=== PATIENT | female | born 1940 | race Caucasian/White ===

== ENCOUNTER 2018-11-10 17:01 | Observation (INO) | payer MEDICARE ==
--- NOTE | 2018-11-10 19:20 | ED ---
Neurological HPI - HPI Summary HPI Summary: This patient is a 77 year old F presenting to ED with a chief complaint of RUE and RLE weakness since three days ago. 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 She states that when she brushes her teeth or skelton her hair, the toothbrush/comb weighs a ton. The weakness has been intermittent but was constant today. Patient reports tingling in the right leg, but states she has had it for a while 2/2 to spinal stenosis. Patient denies fever. Patient takes baby Aspirin. PSHx of three open heart surgeries for her aortic valve. The last surgery was three years ago. - History of Current Complaint Chief Complaint: EDNeurologicalDeficit Stated Complaint: WEAKNESS RIGHT ARM/LEG PER PT Time Seen by Provider: 11/10/18 18:57 Hx Obtained From: Patient Onset/Duration: Started days ago - 3 days, Worse Since - Became constant Timing: Constant Onset Severity: Mild Current Severity: Mild Pain Intensity: 0 Character: Weak, Numbness/Tingling Aggravating: Nothing Alleviating: Nothing Associated Signs and Symptoms: Positive: Weakness - RUE/RLE. Negative: Fever - Allergy/Home Medications Allergies/Adverse Reactions: Allergies Allergy/AdvReac Type Severity Reaction Status Date / Time No Known Allergies Allergy Verified 04/19/14 12:58 Home Medications: Home Medications Aspirin EC TAB* [Ecotrin EC Low Dose 81 MG*] 81 mg PO DAILY 11/10/18 [History Confirmed 11/10/18] Diltiazem CD CAP* [Cardizem CD CAP*] 120 mg PO DAILY 11/10/18 [History Confirmed 11/10/18] Ezetimibe TAB* [Zetia TAB*] 10 mg PO BEDTIME 11/10/18 [History Confirmed ] Lisinopril TAB* [Prinivil TAB*] 2.5 mg PO DAILY 11/10/18 [History Confirmed 05/26] Metoprolol Succinate XL TAB* [Toprol XL TAB*] 50 mg PO DAILY 11/10/18 [History Confirmed 11/10/18] Oxybutynin TAB* [Ditropan TAB*] 5 mg PO BID 11/10/18 [History Confirmed 11/10/18 ] Ranitidine TAB (NF) [Zantac TAB (NF)] 300 mg PO DAILY 11/10/18 [History Confirmed 11/10/18] Rosuvastatin (NF) [Crestor (NF)] 10 mg PO MOWEFR 11/10/18 [History Confirmed 05/26] celeCOXIB CAP* [CeleBREX CAP*] 200 mg PO BID WITH MEALS 11/10/18 [History Confirmed 11/10/18] PMH/Surg Hx/FS Hx/Imm Hx Endocrine/Hematology History: Denies: Hx Diabetes, Hx Thyroid Disease Cardiovascular History: Reports: Hx Hypercholesterolemia, Hx Hypertension, Hx Pacemaker/ICD - 05/20/14, Hx Valvular Heart Disease - 2009 & 05/17/2013 Denies: Hx Congestive Heart Failure History: Denies: Hx Renal Disease Musculoskeletal History: Reports: Hx Arthritis - "Doesn't slow me down!" Sensory History: Reports: Hx Contacts or Glasses Opthamlomology History: Reports: Hx Contacts or Glasses - Cancer History Cancer Type, Location and Year: Br Ca 1998 Hx Chemotherapy: No Hx Radiation Therapy: Yes - Surgical History Surgery Procedure, Year, and Place: PACER PLACED 05/20/14. AORTIC VALVE REPLACED 05/17/14. HEART CATH. Double mastectomy 1998 Hx Anesthesia Reactions: No Infectious Disease History: No Infectious Disease History: Denies: Traveled Outside the [place] in Last 30 Days - Family History Known Family History: Positive: Hypertension, Other - Colon/pancreatic/prostate cancer, Lupus - Social History Alcohol Use: Occasionally Hx Substance Use: No Substance Use Type: Reports: None Hx Tobacco Use: Yes Smoking Status (MU): Former Smoker Type: Cigarettes Have You Smoked in the Last Year: No Review of Systems Negative: Fever Positive: Weakness - RUE/RLE weakness/tingling All Other Systems Reviewed And Are Negative: Yes Physical Exam - Summary Physical Exam Summary: Constitutional: Well-developed, Well-nourished, Alert. (-) Distressed Skin: Warm, Dry HENT: Normocephalic; Atraumatic Eyes: Conjunctiva normal Neck: Musculoskeletal ROM normal neck. (-) JVD, (-) Nuchal rigidity Cardio: Rhythm regular, rate normal, Heart sounds normal; Intact distal pulses; Radial pulses are 2+ and symmetric. (+) Murmur Pulmonary/Chest wall: Effort normal. (-) Respiratory distress, (-) Wheezes, (-) Rales Abd: Soft. (-) Tenderness, (-) Distension, (-) Guarding, (-) Rebound Musculoskeletal: (-) Edema, s/p bilateral mastectomy Lymph: (-) Cervical adenopathy Neuro: Alert, PERRL, Oriented x3, Strength 4/5 in right hand. Strength otherwise normal. Cranial nerves II-XII are grossly intact. SILT, (-) Dysmetria , (-) Nystagmus, ambulates w steady gait. Psych: Mood and affect Normal GCS: 15 Triage Information Reviewed: Yes Vital Signs On Initial Exam: Initial Vitals Temp Pulse Resp BP Pulse Ox 97.6 F 60 18 166/80 96 11/10/18 17:13 11/10/18 17:13 11/10/18 17:13 11/10/18 17:13 11/10/18 17:13 Vital Signs Reviewed: Yes Diagnostics - Vital Signs Vital Signs Temp Pulse Resp BP Pulse Ox 11/10/18 18:49 98.0 F 60 18 138/75 98 11/10/18 17:13 97.6 F 60 18 166/80 96 - Laboratory Result Diagrams: 11/10/18 19:28 11/10/18 19:28 Lab Statement: Any lab studies that have been ordered have been reviewed, and results considered in the medical decision making process. - CT Brain CT Interpretation Completed By: Radiologist Summary of CT Findings: 1. No acute intracranial abnormality. 2. Age-related atrophy and mild chronic small vessel ischemic disease. Dr. Jackson has reviewed this radiology report. - EKG 1916 Cardiac Rate: NL - 60 BPM EKG Comparison: Other - New RBBB Summary of EKG Findings: An EKG at 1916 revealed an atrial-paced rhythm at 60BPM with a RBBB, T-wave inversion in V1 through V4. When compared with an EKG in 2014, the RBBB is new. NIH Scale - NIH Scale Level of Consciousness: Alert/Keenly Responsive Ask Patient the Month and His/Her Age: Both Correct Ask Pt to Open/Close Eyes and Sampling Theory Teacher/Release Non-Paretic Hand: Both Correctly Best Gaze (Only Horizontal Eye Movement): Normal Visual Field Testing: No Visual Loss Facial Paresis-Pt to Smile & Close Eyes or Grimace Symmetry: Normal/Symmetrical Motor Function - Right Arm: No Drift-Holds 10 Seconds Motor Function - Left Arm: No Drift-Holds 10 Seconds Motor Function - Right Leg: No Drift-Holds 10 Seconds Motor Function - Left Leg: No Drift-Holds 10 Seconds Limb Ataxia-Must be out of Proportion to Weakness Present: Absent Sensory (Use Pinprick to Test Arms/Legs/Trunk/Face): Normal Best Language (Describe Picture, Name Items): No Aphasia Dysarthria (Read Several Words): Normal Extinction and Inattention: No Abnormality Total Score: 0 Re-Evaluation - Re-Evaluation First Eval Re-Evaluation Time: 19:53 Comment: Discussed results with patient. Patient agrees to be admitted. Patient will be admitted to [facility] with dx of TIA and weakness. Patient understands and agrees with this plan. Course/Dx - Course Course Of Treatment: 77-year-old female with a history of aortic valve replacement presents with right arm and right leg weakness for 3 days. - NH stroke scale of 0. Physical exam notable for for weakness of the right hand otherwise unremarkable. - Check CT brain labs and EKG plan for TIA workup with MRI. - Diagnoses Provider Diagnoses: TIA (transient ischemic attack), Weakness - Physician Notifications Discussed Care Of Patient With: Shawna Ordonez Time Discussed With Above Provider: 19:50 Instructed by Provider To: Other - Discussed patient case with Dr. Ordonez, neurologist, who stated he will see the patient in the morning. At 2014, discussed patient case with Dr. Josefina Gore, hospitalist, who accepted the patient for admission to [facility]. Discharge ED - Sign-Out/Discharge Documenting (check all that apply): Patient Departure - Admit Patient Received Moderate/Deep Sedation with Procedure: No - Discharge Plan Condition: Stable Disposition: ADMITTED TO [facility] Referrals: Miguelina Leigh [Primary Care Provider] - - Billing Disposition and Condition Condition: STABLE Disposition: Admitted to [facility] - Attestation Statements Document Initiated by Scribe: Yes Documenting Scribe: Denver Lujan Provider For Whom Phil is Documenting (Include Credential): Fercho Jackson MD Scribe Attestation: Denver Sosa, scribed for Fercho Jackson MD on 11/10/18 at 2041. Scribe Documentation Reviewed: Yes Provider Attestation: The documentation as recorded by the Denver foley accurately reflects the service I personally performed and the decisions made by me, Fercho Jackson MD Status of Scribe Document: Viewed
[2018-11-10 19:35] LABS: ABS Eosinophils 0.1 10^3/ul (0-0.6); ABS Monocytes 0.4 10^3/ul (0-0.8); ABS Neutrophils 3.3 10^3/ul (1.5-7.7); Eosinophil % 1.2 %; Hematocrit 40 % (35-47); Hemoglobin 13.9 g/dL (12.0-16.0); Lymphocyte % 21.4 %; Mean Corpuscular HGB Conc 35 g/dL (31-36); Mean Corpuscular Hemoglobin 33 pg (27-31); Mean Corpuscular Volume 93 fL (80-97); Mean Platelet Volume 7.3 fL (7.4-10.4); Nucleated Red Blood Cells % 0.1; Platelet Count 175 10^3/uL (150-450); Red Blood Count 4.27 10^6 /uL (3.70-4.87); Red Cell Distribution Width 13 % (10-15); White Blood Count 4.8 10^3/uL (3.5-10.8)
[2018-11-10 20:00] LABS: Albumin 4.2 g/dL (3.2-5.2); Albumin/Globulin Ratio 1.5 (1-3); BUN/Creatinine Ratio 22.4 (8-20); Calcium 9.3 mg/dL (8.6-10.3); EGFR African American 103.8 (>60); EGFR Non-African American 85.8 (>60); Globulin 2.8 g/dL (2-4); Total Bilirubin 0.4 mg/dL (0.2-1.0)
[2018-11-10] MEDS ORDERED: Enoxaparin(*) 30 MG/0.3 ML SYR SUBCUT SCH (21:00)
--- NOTE | 2018-11-10 21:14 | ADMNOTE ---
Subjective Date of Service: 11/10/18 Interval History: 77 year old female with hx of HTN, HLD, Atrial flutter came to the emergency room with complaints of transient right upper extremity and right lower extremity weaknesses for the past couple of days. Symptoms would resolve gradually in a matter of minutes to hours from time of onset. She came to the emergency room today after noticing that her right arm was very heavy once she tried to use it and her right leg would buckle. Her symptoms already resolved. Pt lives alone with family nearby. She takes baby aspirin at home. Has hx of multiple valvular repairs. She used to be on warfarin for A flutter but that was discontinued 3 years ago for unknown reasons. Review of Systems - Measurements Intake and Output: Intake and Output Last 24 Hours 11/08/18 11/09/18 11/10/18 11/11/18 06:59 06:59 06:59 06:59 Weight 127 lb - Review of Systems Constitutional Symptoms: Negative: Weight Gain, Weight Loss, Weakness, Fatigue, Fever, Night Sweats, Unexplained Falls, Other Dermatology: Negative: Normal, Rash, Skin Lesions, Cancer, Skin Lumps, Other HEENT: Negative: Normal, Change in Hearing, Vertigo, Dental Problems, Tinnitus, Sinus Problem, Other Eyes: Negative: Normal, Change in Vision, Double Vision, Eye Pain, Glaucoma, Cataract, Contacts or Glasses, Other Thyroid: Negative: Normal, Goiter, Thyroid Nodule, Cold Intolerance, Heat Intolerance , Sweatiness, Tremor, Frequent Defecation, Constipation, Palpitations, Primary Hypothyroidism, Primary Hyperthyroidism, Weight Loss, Weight Gain, Change in Skin/Hair, Change in Menstruation, Radiation Exposure, Other Pulmonary: Negative: Normal, Cough, Sputum, Hemoptysis, Wheezing, Respiratory Distress, Shortness of Breath, COPD, Asthma, Exercise Intolerance, Home Oxygen, Other Cardiology: Positive: Palpitations Gastroenterology: Negative: Normal, Abdominal Pain, Nausea, Vomiting, Anorexia, Indigestion, Difficulty Swallowing, Heartburn, Constipation, Diarrhea, Blood in Stools, Change in Bowel Habits, Haematemesis, Melena, Other Musculoskeletal: Positive: Other - transient RUE and LLE weaknesses Neurology: Positive: Unexplained Weakness, Other - transient weakness Negative: Normal, Headache, Migraines, Change in Vision, Diplopia, Dizziness , Change in Balancing, Change in Coordination, Change in Memory, Change in Speech, Change in Sphincter Function, Change in Walking, Numbness\Paresthesiae, Hx of Stroke\TIA, Hx of Seizures Objective Active Medications: Enoxaparin Sodium (Lovenox(*)) 30 mg SUBCUT Q24H [facility] Vital Signs - 8 hr 11/10/18 11/10/18 11/10/18 17:13 18:49 19:24 Temperature 97.6 F 98.0 F Pulse Rate 60 60 60 Respiratory 18 18 18 Rate Blood Pressure 166/80 138/75 141/83 (mmHg) O2 Sat by Pulse 96 98 95 Oximetry 11/10/18 11/10/18 11/10/18 19:54 20:00 20:24 Temperature Pulse Rate 60 60 60 Respiratory 17 28 18 Rate Blood Pressure 162/80 159/82 (mmHg) O2 Sat by Pulse 96 97 96 Oximetry Oxygen Devices in Use Now: None Eyes: No Scleral Icterus, PERRLA Ears/Nose/Mouth/Throat: NL Teeth, Lips, Gums Neck: NL Appearance and Movements; NL JVP Respiratory: Symmetrical Chest Expansion and Respiratory Effort, Clear to Auscultation Cardiovascular: NL Sounds; No Murmurs; No JVD Abdominal: NL Sounds; No Tenderness; No Distention Lymphatic: No Cervical Adenopathy Extremities: No Edema, No Clubbing, Cyanosis Skin: No Rash or Ulcers Neurological: Alert and Oriented x 3, NL Sensation, NL Gait, NL Muscle Strength and Tone Result Diagrams: 11/10/18 19:28 11/10/18 19:28 Assess/Plan/Problems-Billing Assessment: - Patient Problems (1) TIA (transient ischemic attack) Current Visit: Yes Status: Acute Code(s): G45.9 - TRANSIENT CEREBRAL ISCHEMIC ATTACK, UNSPECIFIED SNOMED Code(s): 477146619 Comment: Transient RUE and RLE weakness has hx of valvular A flutter, was on warfarin at some point. TIA workup which includes, MRI, duplex US, Tele monitoring, ECHO Lipid panel, A1C may need to be restarted on warfarin (2) DVT prophylaxis Current Visit: No Status: Acute Priority: Medium Onset Date: 06/02/14 Code(s): [id number] - SNOMED Code(s): 378174712 (3) Full code status Current Visit: No Status: Acute Priority: Medium Onset Date: 06/02/14 Code(s): Z78.9 - OTHER SPECIFIED HEALTH STATUS SNOMED Code(s): 323848065 (4) Cardiac pacemaker Current Visit: No Status: Chronic Priority: Medium Code(s): Z95.0 - PRESENCE OF CARDIAC PACEMAKER SNOMED Code(s): 329860580 (5) Dyslipidemia Current Visit: No Status: Chronic Priority: Medium Code(s): E78.5 - HYPERLIPIDEMIA, UNSPECIFIED SNOMED Code(s): 139066554 Comment: lipid panel pending cont crestor and ezetimibe (6) H/O aortic valve replacement Current Visit: No Status: Chronic Priority: Medium Code(s): Z95.2 - PRESENCE OF PROSTHETIC HEART VALVE SNOMED Code(s): 3150569032492 Comment: bioprosthetic (7) History of hypertension Current Visit: No Status: Chronic Priority: Medium Code(s): Z86.79 - PERSONAL HISTORY OF OTHER DISEASES OF THE CIRCULATORY SYSTEM SNOMED Code(s): 138189070 Comment: toprol XL, lisinopril, cardizem
[2018-11-11 05:51] LABS: INR 1.07 (0.82-1.09)
[2018-11-11 06:00] LABS: HDL Cholesterol 48.6 mg/dL
[2018-11-11 06:21] LABS: TSH (Thyroid Stimulating Horm) 1.2 mcIU/mL (0.34-5.60)
[2018-11-11] MEDS ORDERED: Aspirin EC TAB* 81 MG TAB.EC PO SCH (09:00)
[2018-11-11] MEDS ORDERED: Famotidine TAB* 20 MG PO SCH (09:00)
[2018-11-11] MEDS ORDERED: Lisinopril TAB* 5 MG PO SCH (09:00)
[2018-11-11] MEDS ORDERED: Diltiazem CD CAP* 120 MG PO SCH (09:00)
[2018-11-11] MEDS ORDERED: Metoprolol Succinate XL TAB* 50 MG PO SCH (09:00)
[2018-11-11] MEDS: Atorvastatin* 20 MG TAB PO SCH ×2 (09:21→13:55)
[2018-11-11] MEDS ORDERED: Clopidogrel TAB* 75 MG PO SCH (10:00)
[2018-11-11] MEDS ORDERED: Iohexol 350* (CONTRAST) 500 ML MDV IV ONE (10:04)
--- NOTE | 2018-11-11 14:45 | CONS ---
NEUROLOGY CONSULTATION NOTE: DATE OF CONSULT: 11/11/18 CONSULTING PROVIDER: ANA Purcell REASON FOR CONSULT: Transient right arm weakness. CHIEF COMPLAINT: "Right-sided heaviness." HISTORY OF PRESENT ILLNESS: Mrs. Alicia Barajas is a 77-year-old female with history of hypertension, dyslipidemia, who had 3 open heart surgeries for aortic valve replacement. She has needed to replace the aortic valve a few years later due to a missize. She also had a third heart surgery, which was for pacemaker placement in 2014. The pacemaker was placed for what was reported to the examiner for complete heart block. 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 She had atrial flutter as a complication of one of her heart surgeries and never had any episodes of arrhythmias according to the patient. She was on Coumadin for a short period of time and was switched to aspirin therapy. The patient was in normal state of health on 11/06/18. She woke up Friday morning, 11/07/18 with weakness on the right side. She woke up approximately at 7 a.m. She felt her right arm was heavy. She felt her arm had weighed a ton. She had some gait disturbance and stumbling due to some heavy sensation in the right leg. She never had any dysarthria. She denied any headaches or visual disturbance. She did not have any swallowing difficulty. She did not have any word finding difficulty. She has never had similar symptoms in the past. The symptoms significantly improved over the last 24 hours, but she still feels that her right hand and arm is slightly heavy. She does complain of neck stiffness, but no radiating neck pain. She has not had any falls. She denied any impairment in her bowel or bladder function. PAST MEDICAL HISTORY: Hypertension, dyslipidemia, atrial flutter, she is on aspirin therapy. Complete heart block, status post pacemaker. She follows up with Dr. Ramos. MEDICATIONS: 1. Ranitidine 300 mg p.o. daily. 2. Ezetimibe 10 mg p.o. at bedtime. 3. Rosuvastatin 10 mg p.o. daily. 4. Oxybutynin 5 mg p.o. b.i.d. 5. Metoprolol 50 mg p.o. daily. 6. Lisinopril 2.5 mg p.o. daily. 7. Aspirin 81 mg p.o. daily. 8. Celecoxib 200 mg p.o. b.i.d. 9. Diltiazem 120 mg p.o. daily. ALLERGIES: No known drug allergies. FAMILY HISTORY: Her father had epilepsy. SOCIAL HISTORY: She lives alone. She denied tobacco use. 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 She drinks alcohol occasionally, but denied any excessive alcohol use. REVIEW OF SYSTEMS: A 14-point review of systems was obtained and otherwise negative, except for what was mentioned in the HPI. PHYSICAL EXAM: Vitals: Temperature of 98, pulse of 60, respiratory rate of 20 , oxygen saturation of 97%, blood pressure of 126/72. General: Well-nourished , well- developed female, who looks younger than stated age. Head: Atraumatic , normocephalic. Eyes: Conjunctivae/corneas are clear. Neck is supple and symmetrical with no carotid bruit. Negative Spurling sign bilaterally. Cardiovascular: Regular rate and rhythm with normal S1, S2. Pulmonary: Clear to auscultation bilaterally. Extremities: Normal range of motion with no hammertoes or high arches. Skin: No skin lesions or laceration. Psych: Affect is broad and normal mood, easy to establish rapport. Neurological Examination: Mental Status: Awake, alert, and oriented to person, place, time, and general circumstances. Speech and language including expression, repetition , and comprehension were all assessed and found to be normal. Cranial Nerves: Pupils are equal, round, and reactive to light. Extraocular muscles are intact. No facial asymmetry. Sensation is intact in the right face bilaterally. Tongue is symmetric and midline with no atrophy or fasciculation. Motor Examination: 5/5 strength in the upper and lower extremities bilaterally. There is slight reduced activation graded as 4+/5 in elbow extension, wrist extension on the right. No sensory abnormality. Reflexes: 2+ in the biceps, triceps, brachioradialis, knees, and trace at the ankles bilaterally. Flexor plantar response bilaterally. Coordination: Normal finger -to-nose and [id number] testing bilaterally. Gait: Normal stance. No ataxia. DIAGNOSTIC STUDIES/LAB DATA: Labs, imaging, and other diagnostic testing. WBC of 4.8, hemoglobin of 13.9, hematocrit of 40, platelets of 175. INR is 1.07. Sodium of 137, potassium of 4.0, chloride of 105, carbon dioxide of 28, anion gap of 4, BUN of 15, creatinine 0.67, glucose of 107, hemoglobin A1c of 5.6. LDL of 53, TSH of 1.2. I have added on a vitamin B12 level. Please note that the patient has an MRI noncompatible pacemaker; therefore, was unable to undergo MRI testing. She had a CT head without contrast that showed extensive bilateral subcortical white matter changes consistent with microvascular chronic small vessel ischemic disease. There is some diffuse cerebral atrophy. A repeat CT head that was completed on 11/11/18 was unchanged. Carotid Doppler study completed on 11/10/18, showed no evidence of internal carotid artery stenosis. A head CTA with contrast showed no evidence of LVO or aneurysm. Transthoracic echo is pending. EKG completed on 11/10/18 showed atrial paced rhythm with no evidence of atrial fibrillation. Heart rate of 60 beats per minute. ASSESSMENT: Mrs. Alicia Barajas is a 77-year-old female with history of hypertension, dyslipidemia, postoperative atrial flutter, who has pacemaker for history of complete heart block, who presented with right-sided hemiparesis that has improved to only right upper extremity mild weakness. On examination, she has subtle weakness in the pyramidal distribution on the right side, mostly involving the right upper extremity. The differential diagnosis here is a small subcortical or cortical stroke involving the left MCA vascular territory distribution. Given that the arm is slightly weaker than the leg, suggests more of the MCA distribution. I am unable to see any significant changes on repeat CT of the head, but this can be missed given that it is likely a small embolic source. The etiology is unknown at this time, but I am concerned that she had a history of atrial flutter in the past, she could be going in and out of atrial arrhythmia. Luckily, she does have a pacemaker. The pacemaker was interrogated approximately 5 months ago. According to the patient, the technologist who interrogated that pacemaker had asked the patient if she was on any anticoagulation therapy. No results were clearly verbalized. Therefore , I think it is worth interrogating the pacemaker to make sure the patient is not in and out of any atrial arrhythmias because the treatment plan will differ than the current antiplatelet therapy. Other differential diagnosis to her symptoms include cervical spine disease with radiculopathy, although the patient does not complain of significant new neck pain or radiating pain. Further evaluation of this as an outpatient is recommended. RECOMMENDATIONS: I recommend interrogating the pacemaker at this time. If there is evidence of an atrial flutter or atrial fibrillation, please discontinue all antiplatelet agents and start Eliquis 5 mg twice daily. Continue statin therapy. Given that her LDL was quite low and she is within a group where a higher dose of statin therapy may cause side effects. 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 If she continues to feel heavy on the right upper extremity, she may benefit from outpatient physical therapy. Follow up with Neurology in 6 weeks. If her symptoms persist, an outpatient EMG nerve conduction study should be considered to evaluate for cervical radiculopathy. If the pacemaker does not show any evidence of atrial flutter or atrial fibrillation, continue dual antiplatelet therapy for 20 days and switch to monotherapy thereafter with Plavix 75 mg daily. Secondary stroke prevention was maximized. Stroke education was provided with the patient and her sister at bedside who is also a nurse. I answered their questions to the best of my abilities. Depending on the results of the echo and the interrogation of the pacemaker, the patient could probably be discharged today. I discussed these recommendations with Mrs. Chandler and she verbalized understanding. Pending further workup prior to discharge. She should no longer be on Celecoxib as this can increase her risk for stroke or cardiovascular disease. [id number]/[facility] #: [id number]
[2018-11-11 16:09] VITALS: BP 108/57
--- NOTE | 2018-11-11 16:55 | ECHO ---
*[facility]* [place] [address] Fax #: [phone] Transthoracic Echocardiogram Patient: Alicia Barajas : 1940 Study Date: 11/11/2018 Age: 77 Gender: F HR: 60 bpm Height: 60 in /152.4 cm BSA: 1.54 m^2 Weight: 126.7 lb /57.6 kg BMI: 24.8 kg/m^2 *Chip Separator: * Ariella Velásquez RDCS RN *Referring Physician: * Josefina Gore *Reading Physician: * Tracie Ramos MD Indications: TIA. History: Coronary artery disease. Breast cancer with bilateral mastectomies. Risk factors: Former tobacco use. Hypertension. Dyslipidemia. Labs, prior tests, procedures, and surgery: Aortic valve replacement #21 [facility] [employer] 05/17/2014. Pacemaker/ICD. Conclusions Summary: - Left ventricle: Systolic function is normal. The estimated ejection fraction is 60-65%. - Right ventricle: Pacer wire noted in the right ventricle. Systolic function is normal. - Atrial septum: No defect or patent foramen ovale is identified. - Mitral valve: The findings are consistent with mild stenosis. There is mild regurgitation. The pressure half-time is 128 ms. The mean diastolic gradient is 5.0 mm Hg. The valve area by pressure half-time is 1.7 cm^2. - Aortic valve: There is a bioprosthetic valve present that appears to be functioning normally. The mean systolic gradient is 8.0 mm Hg. The peak systolic gradient is 14.0 mm Hg. The valve area by the velocity-time integral method is 1.92 cm^2. The valve area by the peak velocity method is 1.74 cm^2. - Tricuspid valve: There is mild regurgitation. - Pulmonary arteries: Systolic pressure can not be accurately estimated. - Compared with prior echocardiogram of 01/22/18, ejection fraction is stable, mitral stenosis and prosthetic aortic function is stable. Study data: Transthoracic echocardiogram. Procedure: Transthoracic echocardiography was performed. The study was technically limited due to smoking history. Intravenous agitated saline was administered. A bubble study was performed. Images 17 and 18. Complete 2D, spectral Doppler, and color flow Doppler. Location: Bedside. Patient status: Inpatient. Patient room number: 444-01. Rhythm: Paced rhythm. Findings Left ventricle: The cavity size is normal. Wall thickness is normal. Systolic function is normal. The estimated ejection fraction is 60-65%. Wall motion is normal; there are no regional wall motion abnormalities. There is no consistent Doppler evidence of clinically significant diastolic dysfunction. Right ventricle: The cavity size is normal. Pacer wire noted in the right ventricle. Systolic function is normal. Ventricular septum: There is abnormal interventricular septal wall motion consistent with an RV pacemaker. Left atrium: The atrium is mildly dilated. Right atrium: The atrium is normal in size. Pacer wire noted in right atrium. Atrial septum: No defect or patent foramen ovale is identified. Bubble study was negative. Images 17 and 18. Mitral valve: The leaflets are mild-moderately thickened with decreased excursion. The findings are consistent with mild stenosis. There is mild regurgitation. Aortic valve: Not well visualized. There is a bioprosthetic valve present that appears to be functioning normally. There is no evidence of stenosis. There is trace regurgitation. Tricuspid valve: The valve is structurally normal. There is no evidence of stenosis. There is mild regurgitation. Pulmonic valve: The valve is structurally normal. There is no evidence of stenosis. There is trace regurgitation. Aorta: Aortic root: The aortic root is not dilated. Ascending aorta: The ascending aorta is not dilated. Aortic arch: The aortic arch is not well seen. Pericardium: There is no significant pericardial effusion. Pulmonary arteries: The main pulmonary artery is normal-sized. Systolic pressure can not be accurately estimated. Systemic veins: Inferior vena cava: The vessel is normal in size. There is (>= 50%) respiratory change in the IVC dimension. Measurements Left ventricle Value Ref Aortic valve Value Ref KING, LAX 4.0 cm 3.8 - Jessi diam, ED 1.9 cm ---- 5.2 Jessi diam/bsa, ED 1.2 cm/m^2 ---- ESD, LAX 2.5 cm 2.2 - Peak v, S 1.84 m/sec ---- 3.5 VTI, S 40.3 cm ---- FS, LAX 37 % 27 - 45 Mean grad, S 8.0 mm Hg ---- PW, ED (H) 1.0 cm 0.6 - Peak grad, S 14.0 mm Hg ---- 0.9 LVOT/AV, VTI ratio 0.85 ---- IVS/PW, ED 0.83 -------- VIVIAN, VTI 1.92 cm^2 ---- E', lat jessi, TDI (L) 7.3 cm/sec >=10.0 VIVIAN, Vmax 1.74 cm^2 - --- E/e', lat jessi, TDI 16 -------- E', med jessi, TDI (L) 5.8 cm/sec >=7.0 Mitral valve Value R ef E/e', med jessi, TDI 20 -------- Peak E 1.18 m/sec ---- E', avg, TDI 6.6 cm/sec -------- Peak A 1.64 m/sec ---- E/e', avg, TDI (H) 18 <=14 Decel time 511 ms - --- PHT 128 ms ---- LVOT Value Ref Mean grad, D 5.0 mm Hg ---- Diam, S 1.70 cm -------- Peak grad, D 15.0 mm Hg ---- Area 2.3 cm^2 -------- Peak E/A ratio 0.7 ---- Peak yola, S 1.41 m/sec -------- MVA, PHT 1.7 cm^2 ---- VTI, S 34.1 cm -------- Peak grad, S 8 mm Hg -------- Pulmonic valve Value Ref Mean grad, S 3 mm Hg -------- Peak v, S 1.02 m/sec ---- SV 87 ml -------- Peak grad, S 4.0 mm Hg ---- SV/bsa 56 ml/m^2 -------- Aortic root Value Ref Ventricular septum Value Ref Root diam 2.8 cm <3.8 IVS, ED 0.9 cm 0.6 - 0.9 Ascending aorta Value Ref AAo AP diam, S 3.3 cm ---- Right ventricle Value Ref KING, LAX 2.4 cm -------- Aortic arch Value Ref KING minor ax, A4C 3.0 cm 1.9 - Arch diam 2.7 cm ---- mid 3.5 Inferior vena cava Value Ref Left atrium Value Ref Diam 1.3 cm ---- ML dim, A4C 4.2 cm -------- SI dim, A4C 5.3 cm -------- Vol/bsa, ES, 1-p 36 ml/m^2 11 - 40 A4C Vol/bsa, ES, A/L (H) 38 ml/m^2 16 - 34 Right atrium Value Ref ML dim, ES, A4C 3.5 cm 2.6 - 4.4 SI dim, ES, A4C 5.1 cm 3.4 - 5.3 Estimated RAP 3 mm Hg -------- Legend: (L) and (H) melissa values outside specified reference range. Prepared and electronically signed by Tracie Ramos MD 11/11/2018 16:55
[2018-11-11] MEDS ORDERED: Atorvastatin* 20 MG TAB PO SCH (21:00)
[2018-11-11] MEDS ORDERED: Ezetimibe TAB* 10 MG PO SCH (21:00)
--- NOTE | 2018-11-11 23:49 | DS ---
CC: Dr. Ordonez* DISCHARGE SUMMARY: DATE OF ADMISSION: 11/10/18 DATE OF DISCHARGE: 11/11/18 PROVIDER: ANA Purcell ATTENDING PHYSICIAN WHILE IN THE HOSPITAL: Dr. Oswald Sue* (dictated by ANA Purcell). CONSULTING NEUROLOGIST: Dr. Ordonez. PRIMARY DIAGNOSIS: Right upper extremity weakness, possible cerebrovascular accident. SECONDARY DIAGNOSES: 1. Coronary artery disease. 2. Hypertension. 3. Hyperlipidemia. 4. Breast cancer. 5. Status post pacemaker due to complete heart block. 6. Status post aortic valve replacement. 7. Paroxysmal atrial flutter in the setting of perioperative period. STUDIES WHILE IN THE HOSPITAL: Brain CT on 11/11/18 and CTA of head: Impression: No aneurysm, vascular malformation, occlusion, or stenosis of the visualized intracranial circulation. Chronic small vessel ischemic changes. Carotid Doppler on 11/10/18: Impression: Mild internal carotid artery stenosis less than 50%, most likely closer to 0%. Transthoracic echocardiogram on 11/11/18; ejection fraction 60% to 65%. Pacer wires are noted. Bubble study is negative. HISTORY OF PRESENT ILLNESS/HOSPITAL COURSE: Alicia Barajas is a 77-year-old female with past medical history significant for status post TAVR, coronary artery disease, hypertension, pacemaker in place, and history of breast cancer who presented to the emergency department due to right upper extremity and lower extremity weakness. The patient has been having transient right lower extremity weakness; however, her right upper extremity weakness has been persistent. She tells me that she and her sister who is at bedside who is a retired nurse tells me she has had multiple Holter's in the outpatient setting, never finding atrial flutter or atrial fibrillation, but she does have palpitations at times. She tells me about a history of atrial flutter in the perioperative period; however, clearly this has not been persistent given the multiple Holter's without findings. Given that there is still question of a possibility of an arrhythmia, pacemaker interrogation was ordered which demonstrated no atrial flutter or atrial fibrillation burden. Because the patient's pacemaker is not MRI compatible, this test was unable to be performed. Given that the suspicion of CVA is high, given the patient's risk factors and symptomatology; the patient is started on dual antiplatelet therapy by Dr. Ordonez. However, it may be possible that she may have some cervical radiculopathy and a followup regarding this is detailed below. The patient's LDL was found to be 53 which is at goal. PHYSICAL EXAMINATION: On the date of discharge: General: Thin, elderly white female, sitting on side of bed, appearing comfortable, in no acute distress. Eyes: PERRL. Sclerae are anicteric, no nystagmus. EOMI. ENT: Mucous membranes are moist. Neck: Supple. Cardio: Regular rate and rhythm without murmurs, rubs, or gallops. Lungs: Clear to auscultation bilaterally. Abdomen : Soft, nontender, and nondistended. Extremities: No clubbing, cyanosis, or edema. Neuro: Right cobbler mckay strength slightly reduced compared to left. A 5/5 strength in bilateral lower extremities. Sensation to light touch intact throughout. Face is symmetrical. Speech is clear. DISCHARGE PLAN: Diet: A heart-healthy diet. ACTIVITY: The patient may return to normal activity as tolerated. The patient is advised to return to the emergency department if she experiences sudden dizziness and visual changes; slurred speech; one-sided weakness, numbness or tingling, chest pain, loss of consciousness. She is to follow up with Dr. Ward Hanson in 6 weeks. She is advised to continue taking both aspirin or Plavix for the next 20 days and she will then discontinue aspirin after 20 days and to continue Plavix indefinitely. Additionally, the patient is advised to follow up with her primary care provider providing this hospital stay. DISCHARGE MEDICATIONS: 1. Plavix 75 mg p.o. daily. 2. Aspirin 81 mg p.o. daily x20 days then discontinue. Continued home medications: 1. Diltiazem 120 mg p.o. daily. 2. Lisinopril 2.5 mg p.o. daily. 3. Metoprolol 50 mg p.o. daily. 4. Oxybutynin 5 mg p.o. b.i.d. 5. Crestor 10 mg p.o. Friday, Friday, Friday. 6. Zetia 10 mg p.o. at bedtime. 7. Ranitidine 300 mg p.o. daily. CONDITION ON DISCHARGE: Stable. DISPOSITION: Home. TIME SPENT: Approximately 45 minutes was spent on this discharge, approximately half this time was spent at the bedside evaluating the patient, discussing the plan of care, and discharge. ANA PURCELL [id number]/[facility] #: [id number] [facility] SYSTEMRiley
== END 2018-11-11 17:30 | disposition home or self-care (01) ==
LOC: ED 17:01 → INTOOBSV 21:04 → MEDTELE 21:04
PROVIDERS: ADMIT Student in an Organized Health Care Education/Training Program; ATTEND Internal Medicine
DX: R53.1 Weakness (principal); I25.10 Atherosclerotic heart disease of native coronary artery without angina pectoris; I10 Essential (primary) hypertension; E78.5 Hyperlipidemia, unspecified; Z85.3 Personal history of malignant neoplasm of breast; Z95.0 Presence of cardiac pacemaker; I48.0 Paroxysmal atrial fibrillation; Z79.82 Long term (current) use of aspirin; Z79.899 Other long term (current) drug therapy; Z95.4 Presence of other heart-valve replacement; I48.92 Unspecified atrial flutter
CPT/HCPCS: 36415; 70450; 70496; 80053; 80061; 82607; 83036; 84443; 85025; 85610; 93005; 93306; 96372; 99284; A9270-GY; G0378; J1650; Q9967

== ENCOUNTER 2019-04-27 05:59 | Inpatient (IN) | payer MEDICARE ==
[~2019-04-27 05:59] MED LIST: Buffered Lidocaine 1% SYRIN* 1 ML/SYRINGE INTRADERM ONE
[2019-04-27] MEDS ORDERED: Lactated Ringers 1000 ML Bag* 1,000 ML IV SCH ×2 (06:00→11:00)
--- OUTSIDE RECORDS SUMMARY | 2019-04-27 06:02 | XMS REPORT | Continuity of Care Document ---
:1940 External Reference #:[id number] Author Name Tracie Ramos M.D. (transmitted by agent of provider Katia Samuels) Address [address] 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 Onset: 06/05/2015 Cardiac pacemaker in situ Tracie Ramos M.D. Onset: 06/05/2015 Heart valve replacement Tracie Ramos M.D. Onset: 06/05/2015 Essential hypertension Tracie Ramos M.D. Onset: 06/05/2015 Sinus node dysfunction Tracie Ramos M.D. Onset: 07/26/2015 Paroxysmal supraventricular Tracie Ramos M.D. Onset: 04/01/2016 tachycardia Right bundle branch block Tracie Ramos M.D. Onset: 12/26/2017 Localized, primary osteoarthritis of Monique Jain M.D. Onset: 11/16/2018 the shoulder region Strain of rotator cuff capsule Monique Jain M.D. Onset: 11/16/2018 Skin sensation disturbance Ward Hanson M.D. Onset: 01/29/2019 Cerebral artery occlusion Ward Hanson M.D. Onset: 01/29/2019 Malaise and fatigue Ward Hanson M.D. Onset: 01/29/2019 Cervical spondylosis with myelopathy Ward Hanson M.D. Onset: 03/25/2019 Lumbar spondylosis Ward Hanson M.D. Onset: 03/25/2019 Atherosclerosis of coronary artery Tracie Ramos M.D. Onset: 04/22/2019 without angina pectoris Social History Type Date Description Comments Sex Unknown Tobacco Use Start: Unknown End: Former Cigarette Smoker Unknown Smoking Status Reviewed: 04/22/19 Former Cigarette Smoker ETOH Use consumes 6-7 beers per week Tobacco Use Start: Unknown End: Patient is a former quit in 1989, 1+PPD Unknown smoker for 20yrs Recreational Drug Use Denies Drug Use Exercise Type/Frequency Exercises sporadically Allergies, Adverse Reactions, Alerts Description No Known Drug Allergies Medications Active Medications SIG Qnty Indications Ordering Date Provider MJ Collar At all times after M47.12 Vassilios 03/30/2019 surgical MD Kathe intervention Crestor one tab on m-w- 36tabs Tracie Ramos, 01/23/2018 10mg M.D. Tablets Metoprolol 1 by mouth every day 90tabs Tracie Ramos, 08/29/2015 Succinate ER M.D. 50mg Tablets ER 24HR Aspirin 81 hold for surgery- Jonh Fragoso 05/04/2013 81mg Jose De Jesus Mott, Tablets DR HERNANDES, FASMT Lisinopril 1 by mouth every day Unknown 2.5mg Tablets Zetia 1 tablet po daily ( Borzell, 10mg Tablets started taking 9 MD Kelley months ago) Celebrex take one Unknown 200mg capsule/tablet po qd Capsules Cardizem CD 1 by mouth every day Unknown 120mg Caps ER 24HR Famotidine Take 1 Tablet By Unknown 40mg Mouth Once Daily AT Tablets Bedtime For 30 Days Oxybutynin Chloride 1 by mouth bid Unknown ER 10mg Tablets ER 24HR Medications Administered in Office Medication SIG Qnty Indications Ordering Provider Date Depomedrol 40MG Monique Jain M.D. 11/16/2018 Injection Immunizations Description No Information Available Vital Signs Date Vital Result Comment 04/22/2019 4:38pm Height 59.5 inches 4'11.50" Weight 113.56 lb with shoes Heart Rate 60 /min BP Systolic 142 mmHg Rue reg cuff BP Diastolic 88 mmHg Rue reg cuff Respiratory Rate 18 /min BMI (Body Mass Index) 22.6 kg/m2 Ejection Fraction 60-65% ECHO 11/11/2018 03/30/2019 12:17pm Height 59.5 inches 4'11.50" Weight 125.00 lb Heart Rate 76 /min BP Systolic 134 mmHg BP Diastolic 76 mmHg Pain Level 8 neck hands and arms BMI (Body Mass Index) 24.8 kg/m2 Results Test Acquired Date Facility Test Result H/L Range Note CBC No Diff 04/14/2019 [facility] White Blood 6.2 10^3/uL Normal 3.5-10.[address] [place] [address] [phone] Red Blood Count 4.23 10^6/uL Normal 3.70-4.87 Hemoglobin 14.0 g/dL Normal 12.0-16.0 Hematocrit 40 % Normal 35-47 Mean Corpuscular Volume 95 fL Normal 80-97 Mean Corpuscular Hemoglobin 33 pg High 27-31 Mean Corpuscular HGB Conc 35 g/dL Normal 31-36 Red Cell Distribution Width 12 % Normal 10-15 Platelet Count 207 10^3/uL Normal 150-450 Mean Platelet Volume 7.5 fL Normal 7.4-10.4 Urinalysis Profile 04/14/2019 [facility] Urine Color Yellow [address] [place] [address] [phone] Urine Appearance Clear Urine Specific Proctor 1.018 Normal 1.010-1.030 Urine pH 5.0 Normal 5-9 Urine Urobilinogen Negative Negative Urine Ketones Negative Negative Urine Protein Negative Negative Urine Leukocytes 1+ Abnormal Negative Urine Blood Negative Negative Urine Nitrite Negative Negative Urine Bilirubin Negative Negative Urine Glucose Negative Negative Urine White Blood Cell Trace(0-5/hpf) Absent Urine Red Blood Cell Trace(0-2/hpf) Absent Urine Bacteria Absent Absent Urine Squamous Epithelial Cell Present Abnormal Absent Inr/Protime 04/14/2019 [facility] Inr 1.00 Normal 0.82-1.[address] [place] [address] [phone] Laboratory test 04/14/2019 [facility] Partial 32.8 Normal 26.0 -38.[address] [place] [address] Time PTT [phone] Basic Metabolic 04/14/2019 [facility] Sodium 139 mmol/L Normal 135-[address] [place] [address] [phone] Potassium 4.5 mmol/L Normal 3.5-5.0 Chloride 104 mmol/L Normal 101-111 Co2 Carbon Dioxide 27 mmol/L Normal 22-32 Anion Gap 8 mmol/L Normal 2-11 Glucose 97 mg/dL Normal 70-100 Blood Urea Nitrogen 19 mg/dL Normal 6-24 Creatinine 0.70 mg/dL Normal 0.51-0.95 BUN/Creatinine Ratio 27.1 High 8-20 Calcium 9.6 mg/dL Normal 8.6-10.3 Egfr Non- 81.4 >60 Egfr 98.4 >60 2 Type & Screen 04/14/2019 [facility] Patient Blood Type O Negative [address] [place] [address] [phone] Antibody Screen NEGATIVE Urine Culture And 04/14/2019 [facility] Urine Culture SEE RESULT [address] [place], [place] [address] [phone] Platelet Count 03/17/2019 [facility] Platelet 205 10^3/uL Normal 150- [address] [place] [address] [phone] Mean Platelet Volume 7.4 fL Normal 7.4-10.4 Inr/Protime 03/17/2019 [facility] Inr 1.00 Normal 0.82-1.[address] [place] [address] [phone] Laboratory test 03/17/2019 [facility] Partial 33.6 Normal 26.0 -38.[address] [place] [address] Time PTT [phone] Protein 12/22/2018 [facility] Total 7.9 g/dL 6.3 - 7.[address] Protein([place] [address] p) [phone] Albumin 3.9 g/dL 3.4-4.7 Alpha-1 Globulin 0.3 g/dL 0.1-0.3 Alpha-2 Globulin 1.2 g/dL Abnormal 0.6-1.0 Beta Globulin 1.2 g/dL 0.7-1.2 Gamma Globulin 1.3 g/dL 0.6-1.6 Albumin/Globulin Ratio 0.97 Impression See Comment 5 Laboratory 12/22/2018 [facility] TSH (Thyroid 0.71 Normal 0.34 -5.60 [address] Stim Horm) mcIU/[place] [address] [phone] Free T4 (Free Thyroxine) 1.07 ng/dL Normal 0.61-1.12 7 Erythrocyte Sed Rate 13 mm/Hr Normal 0-29 8 C Reactive Protein 2.03 mg/L Normal <8.01 9 Anti Nuclear Antibody 1.9 U Abnormal 10 Vitamin B12 12/22/2018 [facility] Vitamin B12 530 pg/mL Normal 180-914 [address] [place] [address] [phone] Folic Acid (Folate) 19.93 ng/mL >3.99 12 Laboratory test 12/22/2018 [facility] Creatine 63 U/L Normal 10-[address] Kinase(CK) [place] [address] [phone] Aldolase 4.9 U/L <7.7 14 Myoglobin 34.1 ng/mL Normal 14.3-65.8 15 Lyme Screen W/ Reflex To WB Negative Negative 16 Comp Metabolic 12/22/2018 [facility] Sodium 139 mmol/L Normal 135-[address] [place] [address] [phone] Potassium 4.5 mmol/L Normal 3.5-5.0 Chloride 101 mmol/L Normal 101-111 Co2 Carbon Dioxide 30 mmol/L Normal 22-32 Anion Gap 8 mmol/L Normal 2-11 Glucose 96 mg/dL Normal 70-100 Blood Urea Nitrogen 22 mg/dL Normal 6-24 Creatinine 0.77 mg/dL Normal 0.51-0.95 BUN/Creatinine Ratio 28.6 High 8-20 Calcium 9.9 mg/dL Normal 8.6-10.3 Total Protein 7.4 g/dL Normal 6.4-8.9 Albumin 4.6 g/dL Normal 3.2-5.2 Globulin 2.8 g/dL Normal 2-4 Albumin/Globulin Ratio 1.6 Normal 1-3 Total Bilirubin 0.60 mg/dL Normal 0.2-1.0 Alkaline Phosphatase 47 U/L Normal 34-104 Alt 22 U/L Normal 7-52 Ast 22 U/L Normal 13-39 Egfr Non- 73.1 >60 Egfr 88.4 >60 17 CBC Auto 12/22/2018 [facility] White Blood 5.5 10^3/uL Normal 3.5-10.[address] [place] [address] [phone] Red Blood Count 4.58 10^6/uL Normal 3.70-4.87 Hemoglobin 15.0 g/dL Normal 12.0-16.0 Hematocrit 43 % Normal 35-47 Mean Corpuscular Volume 94 fL Normal 80-97 Mean Corpuscular Hemoglobin 33 pg High 27-31 Mean Corpuscular HGB Conc 35 g/dL Normal 31-36 Red Cell Distribution Width 14 % Normal 10-15 Platelet Count 217 10^3/uL Normal 150-450 Mean Platelet Volume 7.4 fL Normal 7.4-10.4 Abs Neutrophils 3.8 10^3/uL Normal 1.5-7.7 Abs Lymphocytes 1.1 10^3/uL Normal 1.0-4.8 Abs Monocytes 0.5 10^3/uL Normal 0-0.8 Abs Eosinophils 0.1 10^3/uL Normal 0-0.6 Abs Basophils 0.0 10^3/uL Normal 0-0.2 Abs Nucleated RBC 0.0 10^3/uL Granulocyte % 68.2 % Lymphocyte % 20.7 % Monocyte % 9.0 % Eosinophil % 1.3 % Basophil % 0.8 % Nucleated Red Blood Cells % 0.1 CBC Auto 11/10/2018 [facility] White Blood 4.8 10^3/uL Normal 3.5-10.[address] [place] [address] [phone] Red Blood Count 4.27 10^6/uL Normal 3.70-4.87 Hemoglobin 13.9 g/dL Normal 12.0-16.0 Hematocrit 40 % Normal 35-47 Mean Corpuscular Volume 93 fL Normal 80-97 Mean Corpuscular Hemoglobin 33 pg High 27-31 Mean Corpuscular HGB Conc 35 g/dL Normal 31-36 Red Cell Distribution Width 13 % Normal 10-15 Platelet Count 175 10^3/uL Normal 150-450 Mean Platelet Volume 7.3 fL Low 7.4-10.4 Abs Neutrophils 3.3 10^3/uL Normal 1.5-7.7 Abs Lymphocytes 1.0 10^3/uL Normal 1.0-4.8 Abs Monocytes 0.4 10^3/uL Normal 0-0.8 Abs Eosinophils 0.1 10^3/uL Normal 0-0.6 Abs Basophils 0.0 10^3/uL Normal 0-0.2 Abs Nucleated RBC 0.0 10^3/uL Granulocyte % 68.2 % Lymphocyte % 21.4 % Monocyte % 8.7 % Eosinophil % 1.2 % Basophil % 0.5 % Nucleated Red Blood Cells % 0.1 Comp Metabolic 11/10/2018 [facility] Sodium 137 mmol/L Normal 135-[address] [place] [address] [phone] Potassium 4.0 mmol/L Normal 3.5-5.0 Chloride 105 mmol/L Normal 101-111 Co2 Carbon Dioxide 28 mmol/L Normal 22-32 Anion Gap 4 mmol/L Normal 2-11 Glucose 107 mg/dL High 70-100 Blood Urea Nitrogen 15 mg/dL Normal 6-24 Creatinine 0.67 mg/dL Normal 0.51-0.95 BUN/Creatinine Ratio 22.4 High 8-20 Calcium 9.3 mg/dL Normal 8.6-10.3 Total Protein 7.0 g/dL Normal 6.4-8.9 Albumin 4.2 g/dL Normal 3.2-5.2 Globulin 2.8 g/dL Normal 2-4 Albumin/Globulin Ratio 1.5 Normal 1-3 Total Bilirubin 0.40 mg/dL Normal 0.2-1.0 Alkaline Phosphatase 48 U/L Normal 34-104 Alt 17 U/L Normal 7-52 Ast 22 U/L Normal 13-39 Egfr Non- 85.8 >60 Egfr 103.8 >60 18 Laboratory test 11/10/2018 [facility] Hemoglobin A1c 5.6 % Normal 4.0-5.6 [address] (Glyco HGB) [place] [address] [phone] 1 Standard intensity warfarin therapeutic range: 2.0-3.0 High intensity warfarin therapeutic range: 2.5-3.5 2 Because ethnic data is not always readily available, this report includes an eGFR for both -Americans and non- Americans. The National Kidney Disease Education Program (NKDEP) does not endorse the use of the MDRD equation for patients that are not between the ages of 18 and 70, are , have extremes of body size, muscle mass, or nutritional status, or are non- or non-. According to the National Kidney Foundation, irrespective of diagnosis, the stage of the disease is based on the level of kidney function: Stage Description GFR(mL/min/1.73 m(2)) 1 Kidney damage with normal or decreased GFR 90 2 Kidney damage with mild decrease in GFR 60-89 3 Moderate decrease in GFR 30-59 4 Severe decrease in GFR 15-29 5 Kidney failure <15 (or dialysis) 3 SEE RESULT BELOW Name: ALICIA DIOR : [address]: Art Archuleta MD Acct: [id number] Unit: [id number] AGE: 78 Location: [facility] Re04/14/19 SEX: F Status: REG REF SPEC: [id number] MARIBEL: 04/14/19-[address] [facility] [address]: Art Archuleta MD REQ: [id number] RECD: 04/14/197094 STATUS: COMP _ SOURCE: URINE SPDESC: ORDERED: Urine Culture Procedure Result Reported Site Urine Culture Final 04/15/19- 1516 ML No growth of clinically significant organisms * ML - Main Lab . END OF REPORT DEPARTMENT OF PATHOLOGY, [address] [place] [address] Marc Delarosa M.D. Director IA # [id number] 4 Standard intensity warfarin therapeutic range: 2.0-3.0 High intensity warfarin therapeutic range: 2.5-3.5 5 RESULT: No apparent monoclonal protein on serum electrophoresis. Test Performed by: [place] [address] Hooker Operator: Elvis Craig M.D. Ph.D.; CLIA# [id number] 6 Copy Result to: MIGUELINA LEIGH ([id number]) 7 Copy Result to: MIGUELINA LEIGH ([id number]) 8 Copy Result to: MIGUELINA LEIGH ([id number]) 9 Copy Result to: MIGUELINA LEIGH ([id number]) 10 Interpretation: Weak Positive (1.1-2.9) REFERENCE VALUE <=1.0 (Negative) Test Performed by: [facility] [address] [place] [address] Hooker Operator: Elvis Craig M.D. Ph.D.; CLIA# [id number] 11 Normal Range 180 to 914 Indeterminate Range 145 to 180 Deficient Range <145 12 Copy Result to: MIGUELINA LEIGH ([id number]) 13 Copy Result to: MIGUELINA LEIGH ([id number]) 14 Test Performed by: [facility] [address] [place] [address] Hooker Operator: Elvis Craig M.D. Ph.D.; CLIA# [id number] 15 Copy Result to: MIGUELINA LEIGH ([id number]) 16 Copy Result to: MIGUELINA LEIGH ([id number]) 17 Because ethnic data is not always readily available, this report includes an eGFR for both -Americans and non- Americans. The National Kidney Disease Education Program (NKDEP) does not endorse the use of the MDRD equation for patients that are not between the ages of 18 and 70, are , have extremes of body size, muscle mass, or nutritional status, or are non- or non-. According to the National Kidney Foundation, irrespective of diagnosis, the stage of the disease is based on the level of kidney function: Stage Description GFR(mL/min/1.73 m(2)) 1 Kidney damage with normal or decreased GFR 90 2 Kidney damage with mild decrease in GFR 60-89 3 Moderate decrease in GFR 30-59 4 Severe decrease in GFR 15-29 5 Kidney failure <15 (or dialysis) 18 Because ethnic data is not always readily available, this report includes an eGFR for both -Americans and non- Americans. The National Kidney Disease Education Program (NKDEP) does not endorse the use of the MDRD equation for patients that are not between the ages of 18 and 70, are , have extremes of body size, muscle mass, or nutritional status, or are non- or non-. According to the National Kidney Foundation, irrespective of diagnosis, the stage of the disease is based on the level of kidney function: Stage Description GFR(mL/min/1.73 m(2)) 1 Kidney damage with normal or decreased GFR 90 2 Kidney damage with mild decrease in GFR 60-89 3 Moderate decrease in GFR 30-59 4 Severe decrease in GFR 15-29 5 Kidney failure <15 (or dialysis) 19 Therapeutic target for the treatment of diabetes mellitus patients is <7% HBA1C, and in selective patients <6.0%. Please refer to [place] [employer] diabetic care guidelines for further information. Procedures Date Code Description Status 04/14/2019 54363 EKG, Interpretation Only Completed 02/09/2019 70391 ECHO Stress Test Incl Perf Contiuous ekg Monitoring W/Phys Completed Superv 02/01/2019 38265 Pace Maker Eval W/Iterative Adjment Dual Lead Completed 02/01/2019 97067 Pace Maker Eval W/Iterative Adjment Dual Lead Completed 02/01/2019 30237 EKG Tracing & Interpretation Completed 01/14/2019 03119 Nerve Conduction 13+ Studies Completed 01/14/2019 43388 Needle Electromyography Complete, Five Or More Muscles Completed Studied 11/16/2018 60362 Inject/Drain Joint/Bursa Major W/O US Completed 11/11/2018 76401 ECHO Transthorasic Realtime 2D W Doppler & Color Flow Hosp Completed Medical Devices Description No Information Available Encounters Type Date Location Provider Dx Diagnosis Office Visit 04/22/2019 [facility] Tracie Ramos, Z01.810 Encounter for 4:20p [facility] preprocedural cardiovascular examination M50.21 Other cervical disc displacement, high cervical region Z95.0 Presence of cardiac pacemaker Z95.2 Presence of prosthetic heart valve I25.10 Athscl heart disease of [place] coronary artery w/o ang pctrs I47.1 Supraventricular tachycardia Office Visit 03/30/2019 [facility] M47.12 Other 11:30a [facility] Archuleta MD spondylosis with myelopathy, cervical region M47.896 Other spondylosis, lumbar region R20.2 Paresthesia of skin M50.21 Other cervical disc displacement, high cervical region Office Visit 03/25/2019 Deshawn Hanson M47.12 Other spondylosis 12:00p Neurologic MSeb with myelopathy, [facility] cervical region M47.896 Other spondylosis, lumbar region Office Visit 03/04/2019 [facility] M47.12 Other 11:00a [facility] MD Kathe spondylosis with myelopathy, cervical region M47.896 Other spondylosis, lumbar region Office Visit 01/29/2019 [place] [facility] Hanson, R20.2 Paresthesia of 12:00p Neurologic M.D. skin [facility] I63.9 Cerebral infarction, unspecified R53.1 Weakness Office Visit 12/22/2018 9:00a [facility] Andrei R20.2 Paresthesia of [facility] Santino, N.P. skin I63.9 Cerebral infarction, unspecified R53.1 Weakness Z86.73 Prsnl hx of TIA (TIA), and cereb infrc w/o resid deficits Office Visit 12/21/2018 2:00p [facility] Monique Jain, M25.512 Pain in left at [facility] shoulder M25.511 Pain in right shoulder Office Visit 11/16/2018 1:45p [facility] Monique Jain, S46.011A Strain of at [facility] musc/tend the rotator cuff of right shoulder, init M75.41 Impingement syndrome of right shoulder M19.011 Primary osteoarthritis, right shoulder M25.511 Pain in right shoulder M25.512 Pain in left shoulder M19.012 Primary osteoarthritis, left shoulder Office Visit 11/11/2018 [facility] Shawna Ordonez, G81.91 Hemiplegia, 7:00a Clinic unspecified affecting right dominant side I67.82 Cerebral ischemia Office Visit 11/11/2018 10:30a [facility] Angie Paul, R53.1 Weakness Assoc, Hospitalists PA-C I25.10 Athscl heart disease of [place] coronary artery w/o ang pctrs I10 Essential (primary) hypertension E78.5 Hyperlipidemia, unspecified C50.919 Malignant neoplasm of unsp site of unspecified female breast Z95.0 Presence of cardiac pacemaker Z95.4 Presence of other heart-valve replacement I48.0 Paroxysmal atrial fibrillation Office Visit 11/10/2018 [facility] Dulce Maria Curry, G45.9 Transient 10:29a Assoc,jimmy [facility]a [facility] cerebral ischemic Hospitalists attack, unspecified Z95.0 Presence of cardiac pacemaker E78.5 Hyperlipidemia, unspecified Z95.2 Presence of prosthetic heart valve Z86.79 Personal history of other diseases of the circulatory system Assessments Date Code Description Provider 04/22/2019 Z01.810 Encounter for preprocedural Tracie Ramos M.D. cardiovascular examination 04/22/2019 M50.21 Other cervical disc displacement, high Tracie Ramos M.D. cervical region 04/22/2019 Z95.0 Presence of cardiac pacemaker Tracie Ramos M.D. 04/22/2019 Z95.2 Presence of prosthetic heart valve Tracie Ramos M.D. 04/22/2019 I25.10 Atherosclerotic heart disease of [place] Tracie Ramos M.D. coronary artery without angina pectoris 04/22/2019 I47.1 Supraventricular tachycardia Tracie Ramos M.D. 03/30/2019 M47.12 Other spondylosis with myelopathy, Art Archuleta MD cervical region 03/30/2019 M47.896 Other spondyllisa, lumbar region Art Archuleta MD 03/30/2019 R20.2 Paresthesia of skin Art Archuleta MD 03/30/2019 M50.21 Other cervical disc displacement, high Art Archuleta MD cervical region 03/25/2019 M47.12 Other spondylosis with myelopathy, Ward Hanson M.D. cervical region 03/25/2019 M47.896 Other spondylosis, lumbar region Ward Hanson M.D. 03/04/2019 M47.12 Other spondylosis with myelopathy, Art Archuleta MD cervical region 03/04/2019 M47.896 Other spondylosis, lumbar region Art Archuleta MD 02/09/2019 I35.0 Nonrheumatic aortic (valve) stenosis Tracie Ramos M.D. 02/09/2019 R53.1 Weakness Tracie Ramos M.D. 02/09/2019 I48.0 Paroxysmal atrial fibrillation Tracie Ramos M.D. 02/01/2019 Z95.0 Presence of cardiac pacemaker Tracie Ramos M.D. 02/01/2019 Z95.0 Presence of cardiac pacemaker Tracie Ramos M.D. 02/01/2019 Z95.0 Presence of cardiac pacemaker Ica Pacer Schedule 02/01/2019 I48.0 Paroxysmal atrial fibrillation Tracie Ramos M.D. 02/01/2019 I48.0 Paroxysmal atrial fibrillation Ica Pacer Schedule 02/01/2019 I47.1 Supraventricular tachycardia Tracie Ramos M.D. 02/01/2019 I49.5 Sick sinus syndrome Ica Pacer Schedule 02/01/2019 I44.2 Atrioventricular block, complete Tracie Ramos M.D. 02/01/2019 I35.0 Nonrheumatic aortic (valve) stenosis Tracie Ramos M.D. 02/01/2019 Z95.2 Presence of prosthetic heart valve Tracie Ramos M.D. 02/01/2019 R53.1 Weakness Tracie Ramos M.D. 01/29/2019 R20.2 Paresthesia of skin Ward Hanson M.D. 01/29/2019 I63.9 Cerebral infarction, unspecified Ward Hanson M.D. 01/29/2019 R53.1 Weakness Ward Hanson M.D. 01/14/2019 M54.16 Radiculopathy, lumbar region Carlos Donnelly MD 01/14/2019 R20.2 Paresthesia of skin Carlos Donnelly MD 12/22/2018 R20.2 Paresthesia of skin Andrei De, N.P. 12/22/2018 I63.9 Cerebral infarction, unspecified Andrei De, N.P. 12/22/2018 R53.1 Weakness Andrei De, N.P. 12/22/2018 Z86.73 Personal history of transient ischemic Andrei De, N.P. attack (TIA), and cerebral infarction without residual deficits 12/21/2018 M25.512 Pain in left shoulder Monique Jain M.D. 12/21/2018 M25.511 Pain in right shoulder Monique Jain M.D. 11/16/2018 S46.011A Strain of muscle(s) and tendon(s) of the Monique Jain M.D. rotator cuff of right shoulder, initial encounter 11/16/2018 M75.41 Impingement syndrome of right shoulder Monique Jain M.D. 11/16/2018 M19.011 Primary osteoarthritis, right shoulder Monique Jain M.D. 11/16/2018 M25.511 Pain in right shoulder Monique Jain M.D. 11/16/2018 M25.512 Pain in left shoulder Monique Jain M.D. 11/16/2018 M19.012 Primary osteoarthritis, left shoulder Monique Jain M.D. 11/11/2018 G81.91 Hemiplegia, unspecified affecting right Shawna Ordonez MD dominant side 11/11/2018 R53.1 Weakness ANA Strong-C 11/11/2018 I67.82 Cerebral ischemia Shawna Ordonez MD 11/11/2018 G45.9 Transient cerebral ischemic attack, Tracie Ramos M.D. unspecified 11/11/2018 I25.10 Atherosclerotic heart disease of [place] ANA Strong-C coronary artery without angina pectoris 11/11/2018 I10 Essential (primary) hypertension Angie Paul PA-C 11/11/2018 E78.5 Hyperlipidemia, unspecified Angie Humberto PA-C 11/11/2018 C50.919 Malignant neoplasm of unspecified site MAREK StrongC of unspecified female breast 11/11/2018 Z95.0 Presence of cardiac pacemaker Angie Paul PA-C 11/11/2018 Z95.4 Presence of other heart-valve Angie Paul PA-C replacement 11/11/2018 I48.0 Paroxysmal atrial fibrillation Angie Paul PA-C 11/10/2018 G45.9 Transient cerebral ischemic attack, Dulce Maria Curry M.D. unspecified 11/10/2018 Z95.0 Presence of cardiac pacemaker Dulce Maria Curry M.D. 11/10/2018 E78.5 Hyperlipidemia, unspecified Dulce Maria Curry M.D. 11/10/2018 Z95.2 Presence of prosthetic heart valve Dulce Maria Curry M.D. 11/10/2018 Z86.79 Personal history of other diseases of Dulce Maria Curry M.D. the circulatory system Plan of Treatment Future Appointment(s):04/27/2019 7:30 am - Art Archuleta MD at [facility]05/26/2019 2:00 pm - Art Archuleta MD at [facility]05/05/2019 12:00 pm - Art Archuleta MD at [facility]04/22/2019 - Tracie Ramos M.D.Z01.810 Encounter for preprocedural cardiovascular examinationComments:You are in good shape for your surgery, no additional cardiac testing is needed.Recommendations:I am checking on Celebrex with surgeon. Stay on metoprolol pre op Other meds hold as per surgical recommendations.M50.21 Other cervical disc displacement, high cervical ruekjgL68.0 Presence of cardiac pacemakerComments:Your pacemaker is working well.Follow up:Keep prior PO and OV schedule.Z95.2 Presence of prosthetic heart valveComments:Stable function on echo and exam.I25.10 Atherosclerotic heart disease of [place] coronary artery without angina yfnkppjuB73.1 Supraventricular tachycardia Functional Status Description No Information Available Mental Status Description No Information Available Referrals Refer to Reason for Referral Status Appt Date Art Archuleta MD neck pain Sent [address] [place] [phone]
--- OUTSIDE RECORDS SUMMARY | 2019-04-27 06:03 | XMS REPORT | Continuity of Care Document ---
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 Onset: 03/25/2019 Social History Type Date Description Comments Sex Unknown Tobacco Use Start: Unknown End: Former Cigarette Smoker Unknown Smoking Status Reviewed: 03/30/19 Former Cigarette Smoker ETOH Use consumes 6-7 beers per week Tobacco Use Start: Unknown End: Patient is a former quit in 1989, 1+PPD Unknown smoker for 20yrs Recreational Drug Use Denies Drug Use Exercise Type/Frequency Exercises sporadically Allergies, Adverse Reactions, Alerts Description No Known Drug Allergies Medications Active Medications SIG Qnty Indications Ordering Date Provider AVE Collar At all times after M47.12 [facility] 03/30/2019 surgical MD Kathe intervention Crestor one tab on m-w-f 36tabs Tracie Ramos, 01/23/2018 10mg M.D. Tablets Metoprolol 1 by mouth every day 90tabs Tracie Ramos, 08/29/2015 Succinate ER M.D. 50mg Tablets ER 24HR Aspirin 81 po qd Jonh Richmond 05/04/2013 81mg Jose De Jesus Mott, Tablets JONY MILTON FACC Lisinopril 1/2 by mouth every Unknown 2.5mg day Tablets Zetia 1 tablet po daily ( [...] Available Vital Signs Date Vital Result Comment 03/30/2019 12:17pm Height 59.5 inches 4'11.50" Weight 125.00 lb Heart Rate 76 /min BP Systolic 134 mmHg BP Diastolic 76 mmHg Pain Level 8 neck hands and arms BMI (Body Mass Index) 24.8 kg/m2 03/25/2019 12:06pm Height 59.5 inches 4'11.50" Weight 123.00 lb Heart Rate 66 /min BP Systolic 100 mmHg BP Diastolic 64 mmHg BMI (Body Mass Index) 24.4 kg/m2 Results Test Acquired Date Facility Test Result H/L Range Note CBC No Diff 04/14/2019 [facility] White Blood 6.2 10^3/uL Normal 3.5-10.8 [address] [facility] [place] [address] [phone] Red Blood Count 4.23 10^6/uL Normal 3.70-4.87 Hemoglobin 14.0 g/dL Normal 12.0-16.0 Hematocrit 40 % Normal 35-47 Mean Corpuscular Volume 95 fL Normal 80-97 Mean Corpuscular Hemoglobin 33 pg High 27-31 Mean Corpuscular HGB Conc 35 g/dL Normal 31-36 Red Cell Distribution Width 12 % Normal 10-15 Platelet Count 207 10^3/uL Normal 150-450 Mean Platelet Volume 7.5 fL Normal 7.4-10.4 Urinalysis Profile 04/14/2019 [facility] Urine Color Yellow [address] [place] [address] [phone] Urine Appearance Clear Urine Specific [place] 1.018 Normal 1.010-1.030 Urine pH 5.0 Normal [...] Epithelial Cell Present Abnormal Absent Inr/Protime 04/14/2019 [facility] Inr 1.00 Normal 0.82-1.[address] [place] [address] [phone] Laboratory test 04/14/2019 [facility] Partial 32.8 Normal 26.0 -38.[address] [place] [address] [place] [address] Time PTT [phone] Basic Metabolic 04/14/2019 [facility] Sodium 139 mmol/L Normal 135-[address] [place] [address], [place] [id number] [phone] Potassium 4.5 mmol/L Normal 3.5-5.0 Chloride 104 mmol/L Normal 101-111 Co2 Carbon Dioxide 27 mmol/L Normal 22-32 Anion Gap 8 mmol/L Normal 2-11 Glucose 97 mg/dL Normal 70-100 Blood Urea Nitrogen 19 mg/dL Normal 6-24 Creatinine 0.70 mg/dL Normal 0.51-0.95 BUN/Creatinine Ratio 27.1 High 8-20 Calcium 9.6 mg/dL Normal 8.6-10.3 Egfr Non- 81.4 >60 Egfr 98.4 >60 2 Type & Screen 04/14/2019 [facility] Patient [place] [address] [phone] Antibody Screen NEGATIVE Platelet 03/17/2019 [facility] Platelet 205 10^3/uL Normal 150 -450 Count [facility] [place] [address] [phone] Mean Platelet Volume 7.4 fL Normal 7.4-10.4 Inr/Protime 03/17/2019 [facility] Inr 1.00 Normal 0.82-1.09 3 [place] [address] [phone] Laboratory test 03/17/2019 [facility] Partial 33.6 Normal 26.0 -38.0 finding [facility] [place] [address] Time PTT [phone] Protein 12/22/2018 [facility] Total 7.9 g/dL 6.3 - 7.9 Electrophoresis [facility] Protein([place] [address] p) [phone] Albumin 3.9 g/dL 3.4-4.7 Alpha-1 Globulin 0.3 g/dL 0.1-0.3 Alpha-2 Globulin 1.2 g/dL Abnormal 0.6-1.0 Beta Globulin 1.2 g/dL 0.7-1.2 Gamma Globulin 1.3 g/dL 0.6-1.6 Albumin/Globulin Ratio 0.97 Impression See Comment 4 Laboratory 12/22/2018 [facility] TSH (Thyroid 0.71 Normal 0.34 -5.60 5 test finding [facility] Stim Horm) mcIU/[place] [address] [phone] Free T4 (Free Thyroxine) 1.07 ng/dL Normal 0.61-1.12 6 Erythrocyte Sed Rate 13 mm/Hr Normal 0-29 7 C Reactive Protein 2.03 mg/L Normal <8.01 8 Anti Nuclear Antibody 1.9 U Abnormal 9 Vitamin B12 12/22/2018 [facility] Vitamin B12 530 pg/mL Normal 180-9[address] [place] [address] [phone] Folic Acid (Folate) 19.93 ng/mL >3.99 11 Laboratory test 12/22/2018 [facility] Creatine 63 U/L Normal 10-[address] Kinase(CK) [place] [address] [phone] Aldolase 4.9 U/L <7.7 13 Myoglobin 34.1 ng/mL Normal 14.3-65.8 14 Lyme Screen W/ Reflex To WB Negative Negative 15 Comp Metabolic 12/22/2018 [facility] Sodium 139 mmol/L Normal 135-[address] [place] [address] [phone] Potassium 4.5 mmol/L Normal 3.5-5.0 Chloride 101 [...] Egfr Non- 73.1 >60 Egfr 88.4 >60 16 CBC Auto 12/22/2018 [facility] White Blood 5.5 10^3/uL Normal 3.5-10.[address] [place] [address] [phone] Red Blood Count 4.58 10^6/uL Normal 3.70-4.87 [...] Blood Cells % 0.1 CBC Auto 11/10/2018 [facility] White Blood 4.8 10^3/uL Normal 3.5-10.[address] [place] [address] [phone] Red Blood Count 4.27 10^6/uL Normal 3.70-4.87 [...] Blood Cells % 0.1 Comp Metabolic 11/10/2018 [facility] Sodium 137 mmol/L Normal 135-[address] [place] [address] [phone] Potassium 4.0 mmol/L Normal 3.5-5.0 Chloride 105 [...] Egfr Non- 85.8 >60 Egfr 103.8 >60 17 Laboratory test 11/10/2018 [facility] Hemoglobin A1c 5.6 % Normal 4.0-5.[address] (Glyco HGB) [place] [address] [phone] 1 Standard intensity warfarin therapeutic range: 2.0-3.0 [...] 5 Kidney failure <15 (or dialysis) 3 Standard intensity warfarin therapeutic range: 2.0-3.0 High intensity warfarin therapeutic range: 2.5-3.5 4 RESULT: No apparent monoclonal protein on serum electrophoresis. Test Performed by: [place] [address] Clinic Lead: Elvis Craig M.D. Ph.D.; CLIA# [id number] 5 Copy Result to: MIGUELINA LEIGH ([id number]) 6 Copy Result to: MIGUELINA LEIGH ([id number]) 7 Copy Result to: MIGUELINA LEIGH ([id number]) 8 Copy Result to: MIGUELINA LEIGH ([id number]) 9 Interpretation: Weak Positive (1.1-2.9) REFERENCE VALUE <=1.0 (Negative) Test Performed by: [place] [address] Clinic Lead: Elvis Craig M.D. Ph.D.; CLIA# [id number] 10 Normal Range 180 to 914 Indeterminate Range 145 to 180 Deficient Range <145 11 Copy Result to: MIGUELINA LEIGH ([id number]) 12 Copy Result to: MIGUELINA LEIGH ([id number]) 13 Test Performed by: [address] [address] Clinic Lead: Elvis Craig M.D. Ph.D.; CLIA# [id number] 14 Copy Result to: MIGUELINA LEIGH ([id number]) 15 Copy Result to: MIGUELINA LEIGH ([id number]) 16 Because ethnic data is not always readily [...] 15-29 5 Kidney failure <15 (or dialysis) 17 Because ethnic data is not always [...] 5 Kidney failure <15 (or dialysis) 18 Therapeutic target for the treatment of diabetes mellitus patients is <7% HBA1C, and in selective patients <6.0%. Please refer to [place] [employer] diabetic care guidelines for further information. Procedures Date Code Description Status 02/09/2019 31502 ECHO Stress Test Incl Perf Contiuous ekg Monitoring W/Phys Completed Superv 02/01/2019 17630 Pace Maker Eval W/Iterative Adjment Dual Lead Completed 02/01/2019 17636 Pace Maker Eval W/Iterative Adjment Dual Lead Completed 02/01/2019 47846 EKG Tracing & Interpretation Completed 01/14/2019 70721 Nerve Conduction 13+ Studies Completed 01/14/2019 15840 Needle Electromyography Complete, Five Or More Muscles Completed Studied 11/16/2018 30042 Inject/Drain Joint/Bursa Major W/O US Completed 11/11/2018 35802 ECHO Transthorasic Realtime 2D W Doppler & Color Flow Hosp Completed Medical Devices Description No Information Available Encounters Type Date Location Provider Dx Diagnosis Office Visit 03/30/2019 Neuro[facility] M47.12 Other spondylosis 11:30a [facility] Archuleta MD with myelopathy, cervical region M47.896 Other spondylosis, lumbar region R20.2 Paresthesia of skin 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 with myelopathy, [facility] cervical region M47.896 Other spondylosis, lumbar region Office Visit 03/04/2019 Neuro[facility] M47.12 Other 11:00a [facility] Archuleta MD spondylosis with myelopathy, cervical region M47.896 Other spondylosis, lumbar region Office Visit 01/29/2019 [place], R20.2 Paresthesia of 12:00p Neurologic M.D. skin [facility] I63.9 Cerebral infarction, unspecified R53.1 Weakness Office Visit 12/22/2018 9:00a [place] [facility] Andrei R20.2 Paresthesia of [facility] Santino, N.P. skin I63.9 Cerebral infarction, unspecified R53.1 Weakness Z86.73 Prsnl hx of TIA (TIA), and cereb infrc w/o resid deficits Office Visit 12/21/2018 2:00p [place] [facility] M25.512 [facility] Pain in right shoulder Office Visit 11/16/2018 1:45p [place] [facility] Jain, S46.011A Strain of at [facility].D. musc/tend the rotator cuff of right shoulder, init M75.41 Impingement syndrome of right shoulder M19.011 Primary osteoarthritis, right shoulder M25.511 Pain in right shoulder M25.512 Pain in left shoulder M19.012 Primary osteoarthritis, left shoulder Office Visit 11/11/2018 [facility] Shawna Ordonez, G81.91 Hemiplegia, 7:00a Clinic unspecified affecting right dominant side I67.82 Cerebral ischemia Office Visit 11/11/2018 10:30a [facility] Angie Paul, R53.1 Weakness Assoc,pc Hospitalists PA-C I25.10 Athscl heart disease of [place] coronary artery w/o ang pctrs I10 Essential (primary) hypertension E78.5 Hyperlipidemia, unspecified C50.919 Malignant neoplasm of unsp site of unspecified female breast Z95.0 Presence of cardiac pacemaker Z95.4 Presence of other heart-valve replacement I48.0 Paroxysmal atrial fibrillation Office Visit 11/10/2018 [facility] Dulce Maria Curry, G45.9 Transient 10:29a Assoc,jimmy Dela Cruz cerebral ischemic Hospitalists attack, unspecified Z95.0 Presence of cardiac pacemaker E78.5 Hyperlipidemia, unspecified Z95.2 Presence of prosthetic heart valve Z86.79 Personal history of other diseases of the circulatory system Assessments Date Code Description Provider 03/30/2019 M47.12 Other spondylosis with myelopathy, Art [...] Archuleta MD cervical region 03/04/2019 M47.896 Other spondyllisa lumbar region Art Archuleta MD 02/09/2019 I35.0 [...] De, N.P. 12/22/2018 I63.9 Cerebral infarction, unspecified Andreimaricarmen De, N.P. 12/22/2018 R53.1 Weakness Andrei De, N.P. 12/22/2018 Z86.73 Personal history of transient ischemic Andreikarlee De, N.P. attack (TIA), and cerebral infarction [...] unspecified 11/11/2018 I25.10 Atherosclerotic heart disease of [place] MAREK StrongC coronary artery without angina pectoris 11/11/2018 I10 [...] circulatory system Plan of Treatment Future Appointment(s):04/27/2019 10:30 am - Art Archuleta MD at [facility]05/26/2019 2:00 pm - Art Archuleta MD at [facility]05/05/2019 12:00 pm - Art Archuleta MD at [facility]03/25/2019 - Ward Hanson M.D.M47.12 Other spondylosis with myelopathy, cervical regionFollow up:TBDM47.896 Other spondylosis, lumbar region Functional Status Description No Information Available Mental Status Description No Information Available Referrals Refer to Dr Reason for Referral Status Appt Date Art Archuleta MD neck pain Sent [address] [place] [phone]
--- OUTSIDE RECORDS SUMMARY | 2019-04-27 06:03 | XMS REPORT | Continuity of Care Document ---
:1940 External Reference #:[id number] Author Name Soo Cagle PA-C Address [address] [place] [address] Care Team Providers Name Role Phone Miguelina Leigh PA Care Team Information Rate Marker [phone] Problems Active Problems Provider Date Essential hypertension Onset: 02/03/2013 Pure hypercholesterolemia Onset: 02/03/2013 Right upper quadrant pain Soo Cagle PA-C Onset: 03/08/2019 Indigestion Jose Francisco Noyola M.D. Onset: 02/03/2013 Social History Type Date Description Comments Sex Unknown ETOH Use Drinks 2 Alcoholic Beverages Per Day Tobacco Use Start: Unknown Patient has never smoked Smoking Status Reviewed: 03/08/19 Patient has never smoked Allergies, Adverse Reactions, Alerts Description No Known Drug Allergies Medications Active Medications SIG Qnty Indications Ordering Provider Date Metoprolol Tartrate Unknown 50mg Tablets Dilt-XR Daily Unknown 120mg Caps ER 24HR Lisinopril 1 by mouth every Unknown 2.5mg Tablets day Ezetimibe Daily Unknown 10mg Tablets Rosuvastatin Calcium Fri-Fri-Fri Unknown 10mg Tablets Aspirin 81 1 by mouth every Unknown 81mg Tablets DR day Oxybutynin Chloride ER bid Unknown 10mg Tablets ER 24HR Famotidine 1 by mouth Daily Unknown 40mg Tablets AT hs Immunizations Description No Information Available Vital Signs Date Vital Result Comment 03/08/2019 2:07pm Height 61 inches 5'1" Weight 122.00 lb BP Systolic 139 mmHg BP Diastolic 73 mmHg Heart Rate 60 /min BMI (Body Mass Index) 23.0 kg/m2 02/03/2013 3:11pm Height 61 inches 5'1" Weight 136.00 lb BP Systolic 132 mmHg BP Diastolic 84 mmHg Heart Rate 76 /min BMI (Body Mass Index) 25.7 kg/m2 Results Test Acquired Date Facility Test Result H/L Range Note CMP And Lipid 12/08/2018 [facility] Misc Other Test <pending> Laboratory test 12/08/2018 [facility] TSH Thyroid Stim <pending> finding Hormone(!) Vitamin D 12/08/2018 [facility] Z#Other <pending> Observations CBC W/Auto 12/08/2018 [facility] White Blood Count <pending> Differential(!) Ser Auto CNT RBC Red Blood Count <pending> Hemoglobin Blood <pending> Hematocrit <pending> MCV (Corpuscular Volume) <pending> MCH (Corpuscular Hemoglobin) <pending> MCHC (Corpuscular Hemog Conc) <pending> RDW <pending> Platelet Count Blood Auto CNT <pending> MPV <pending> Lymph% <pending> Holt% <pending> Neutrophil % <pending> Absolute Lymphocytes <pending> Absolute Monocytes <pending> Absolute Neutrophils <pending> Procedures Description No Information Available Medical Devices Description No Information Available Encounters Description No Information Available Assessments Date Code Description Provider 03/08/2019 R10.11 Right upper quadrant pain Soo Cagle PA-C Plan of Treatment No Information Available Functional Status Description No Information Available Mental Status Description No Information Available Referrals Description No Information Available
--- OUTSIDE RECORDS SUMMARY | 2019-04-27 06:03 | XMS REPORT | Continuity of Care Document ---
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 Postoperative Wound Closure Pramod Mendoza M.D., [facility], [facility] Onset: 04/25/2014 Encounter Complete atrioventricular block Tracie [...] Jose De Jesus Mott, Tablets DR HERNANDES, JONY Lisinopril 1/2 by mouth every Unknown 2.5mg [...] Date Facility Test Result H/L Range Note Platelet Count 03/17/2019 [facility] Platelet 205 10^3/uL Normal 150-[address] [place], [place] [id number] [phone] Mean Platelet Volume 7.4 fL Normal 7.4-10.4 Inr/Protime 03/17/2019 [facility] Inr 1.00 Normal 0.82-1.[address] [place] [address] [phone] Laboratory test 03/17/2019 [facility] Partial 33.6 Normal 26.0 -38.[address] [place] [address] Time PTT [phone] Protein 12/22/2018 [facility] Total 7.9 g/dL 6.3 - 7.[address] Protein([place] [address] p) [phone] Albumin 3.9 g/dL 3.4-4.7 Alpha-1 Globulin 0.3 g/dL 0.1-0.3 Alpha-2 Globulin 1.2 g/dL Abnormal 0.6-1.0 Beta Globulin 1.2 g/dL 0.7-1.2 Gamma Globulin 1.3 g/dL 0.6-1.6 Albumin/Globulin Ratio 0.97 Impression See Comment 2 Laboratory 12/22/2018 [facility] TSH (Thyroid 0.71 Normal 0.34 -5.[address] Stim Horm) mcIU/mL [place], [place] [id number] [phone] Free T4 (Free Thyroxine) 1.07 ng/dL Normal 0.61-1.12 4 Erythrocyte Sed Rate 13 mm/Hr Normal 0-29 5 C Reactive Protein 2.03 mg/L Normal <8.01 6 Anti Nuclear Antibody 1.9 U Abnormal 7 Vitamin B12 12/22/2018 [facility] Vitamin B12 530 pg/mL Normal 180-9[address] [place] [address] [phone] Folic Acid (Folate) 19.93 ng/mL >3.99 9 Laboratory test 12/22/2018 [facility] Creatine 63 U/L Normal 10-[address] Kinase(CK) [place] [address] [phone] Aldolase 4.9 U/L <7.7 11 Myoglobin 34.1 ng/mL Normal 14.3-65.8 12 Lyme Screen W/ Reflex To WB Negative Negative 13 Comp Metabolic 12/22/2018 [facility] Sodium 139 mmol/L Normal 135-[address] [place] [address] [phone] Potassium 4.5 mmol/L Normal 3.5-5.0 Chloride 101 [...] Egfr Non- 73.1 >60 Egfr 88.4 >60 14 CBC Auto 12/22/2018 [facility] White Blood 5.5 10^3/uL Normal 3.5-10.[address] [place] [address] [phone] Red Blood Count 4.58 10^6/uL Normal 3.70-4.87 [...] Blood Cells % 0.1 CBC Auto 11/10/2018 [facility] White Blood 4.8 10^3/uL Normal 3.5-10.[address] Count [place], [place] [address] [phone] Red Blood Count 4.27 10^6/uL Normal 3.70-4.87 [...] Blood Cells % 0.1 Comp Metabolic 11/10/2018 [facility] Sodium 137 mmol/L Normal 135-145 Panel [address] [place] [address] [phone] Potassium 4.0 mmol/L Normal 3.5-5.0 Chloride 105 [...] Egfr Non- 85.8 >60 Egfr 103.8 >60 15 Laboratory test 11/10/2018 [facility] Hemoglobin A1c 5.6 % Normal 4.0-5.6 16 finding [address] [facility] (Glyco HGB) [place] [address] [phone] 1 Standard intensity warfarin therapeutic range: 2.0-3.0 High intensity warfarin therapeutic range: 2.5-3.5 2 RESULT: No apparent monoclonal protein on serum electrophoresis. Test Performed by: [facility] - [facility] [address] [place] [address] Mine Technician: Elvis Craig M.D. Ph.D.; CLIA# [id number] 3 Copy Result to: MIGUELINA LEIGH ([id number]) 4 Copy Result to: MIGUELINA LEIGH ([id number]) 5 Copy Result to: MIGUELINA LEIGH ([id number]) 6 Copy Result to: MIGUELINA LEIGH ([id number]) 7 Interpretation: Weak Positive (1.1-2.9) REFERENCE VALUE <=1.0 (Negative) Test Performed by: [facility] - [facility] [address] [place] [address] Mine Technician: Elvis Craig M.D. Ph.D.; CLIA# [id number] 8 Normal Range 180 to 914 Indeterminate Range 145 to 180 Deficient Range <145 9 Copy Result to: MIGUELINA LEIGH ([id number]) 10 Copy Result to: MIGUELINA LEIGH ([id number]) 11 Test Performed by: [facility] - [facility] [address] [place] [address] Mine Technician: Elvis Craig M.D. Ph.D.; CLIA# [id number] 12 Copy Result to: MIGUELINA LEIGH ([id number]) 13 Copy Result to: MIGUELINA LEIGH ([id number]) 14 Because ethnic data is not always readily [...] 15-29 5 Kidney failure <15 (or dialysis) 15 Because ethnic data is not always readily [...] 15-29 5 Kidney failure <15 (or dialysis) 16 Therapeutic target for the treatment of diabetes mellitus patients is <7% HBA1C, and in selective patients <6.0%. Please refer to [place] [employer] diabetic care guidelines for further information. Procedures Date Code Description Status 02/09/2019 28207 ECHO Stress Test Incl Perf Contiuous ekg Monitoring W/Phys Completed Superv 02/01/2019 05726 Pace Maker Eval W/Iterative Adjment Dual Lead Completed 02/01/2019 23934 Pace Maker Eval W/Iterative Adjment Dual Lead Completed 02/01/2019 82642 EKG Tracing & Interpretation Completed 01/14/2019 09392 Nerve Conduction 13+ Studies Completed 01/14/2019 84205 Needle Electromyography Complete, Five Or More Muscles Completed Studied 11/16/2018 64853 Inject/Drain Joint/Bursa Major W/O US Completed 11/11/2018 57427 ECHO Transthorasic Realtime 2D W Doppler & Color Flow Hosp Completed Medical Devices Description No Information Available Encounters Type Date Location Provider Dx Diagnosis Office Visit 03/04/2019 Neurosurgery V[facility]ilios M47.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 skin Services Of [facility] I63.9 Cerebral infarction, unspecified R53.1 Weakness Office Visit 12/22/2018 9:00a [facility] Andrei R20.2 Paresthesia of Services Of [facility] Skyla De skin I63.9 Cerebral infarction, unspecified R53.1 Weakness Z86.73 Prsnl hx of TIA (TIA), and cereb infrc w/o resid deficits Office Visit 12/21/2018 2:00p [facility] Monique Jain, M25.512 Pain in left at [place] M.D. shoulder M25.511 Pain in right shoulder Office Visit 11/16/2018 1:45p [facility] Ambrizke, S46.011A Strain of at Ruby Dela Cruz musc/tend the rotator cuff of right shoulder, init M75.41 Impingement syndrome of right shoulder M19.011 Primary osteoarthritis, right shoulder M25.511 Pain in right shoulder M25.512 Pain in left shoulder M19.012 Primary osteoarthritis, left shoulder Office Visit 11/11/2018 Neurohospitalist Shawna Ordonez, G81.91 Hemiplegia, 7:00a Clinic unspecified affecting right dominant side I67.82 Cerebral ischemia Office Visit 11/11/2018 10:30a [facility] Angie Paul, R53.1 Weakness Assoc,pc Hospitalists PA-C I25.10 Athscl heart disease of [place] coronary artery w/o ang pctrs I10 Essential (primary) hypertension E78.5 Hyperlipidemia, unspecified C50.919 Malignant neoplasm of unsp site of unspecified female breast Z95.0 Presence of cardiac pacemaker Z95.4 Presence of other heart-valve replacement I48.0 Paroxysmal atrial fibrillation Office Visit 11/10/2018 [facility] Dulce Maria Curry, G45.9 Transient 10:29a Assoc,jimmy Dela Cruz cerebral ischemic Hospitalists attack, unspecified Z95.0 Presence of cardiac pacemaker E78.5 Hyperlipidemia, unspecified Z95.2 Presence of prosthetic heart valve Z86.79 Personal history of other diseases of the circulatory system Assessments Date Code Description Provider 03/30/2019 M47.12 Other spondylosis with myelopathy, Art Archuleta MD cervical region 03/30/2019 M47.896 Other spondylosis, lumbar region Art Archuleta MD 03/30/2019 R20.2 Paresthesia of skin Art Archuleta MD 03/25/2019 M47.12 Other spondylosis with myelopathy, Ward [...] deficits 12/21/2018 M25.512 Pain in left shoulder Moniquejose Jain M.D. 12/21/2018 M25.511 Pain in right shoulder Moniquejose Jain M.D. 11/16/2018 S46.011A Strain of muscle(s) and tendon(s) of the Monique Jain M.D. rotator cuff of right shoulder, initial encounter 11/16/2018 M75.41 Impingement syndrome of right shoulder Monique Jain M.D. 11/16/2018 M19.011 Primary osteoarthritis, right shoulder Moniquejakob Jain M.D. 11/16/2018 M25.511 Pain in right shoulder Moniquejose Jain M.D. 11/16/2018 M25.512 Pain in left shoulder Moniquejose Jain M.D. 11/16/2018 M19.012 Primary osteoarthritis, left shoulder Mnoiquejakob Jain M.D. 11/11/2018 G81.91 Hemiplegia, unspecified affecting right Shawna Ordonez MD dominant side 11/11/2018 R53.1 Weakness MAREK StrongC 11/11/2018 I67.82 Cerebral ischemia Shawna Ordonez MD 11/11/2018 G45.9 Transient cerebral ischemic attack, Tracie Ramos M.D. 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 unspecified 11/10/2018 Z95.0 Presence of cardiac pacemaker Dulce Maria Curry M.D. 11/10/2018 E78.5 Hyperlipidemia, unspecified Dulce Maria Curry M.D. 11/10/2018 Z95.2 Presence of prosthetic heart valve Dulce Maria Curry M.D. 11/10/2018 Z86.79 Personal history of other diseases of Dulce Maria Curry M.D. the circulatory system Plan of Treatment 03/30/2019 - Art Archuleta, MDM47.12 Other spondylosis with myelopathy, cervical regionNew Medication:MJ Collar - At all times after surgical interventionFollow up:RV one week, one month, three months postop.M47.896 Other spondylosis, lumbar jwsaefL65.2 Paresthesia of skin Functional Status Description No Information Available Mental Status Description No Information Available Referrals Refer to Dr Reason for Referral Status Appt Date Art Archuleta MD neck pain Sent [address] [place] [phone]
--- OUTSIDE RECORDS SUMMARY | 2019-04-27 06:03 | XMS REPORT | Continuity of Care Document ---
:1940 External Reference #:[id number] Author Name Ward Hanson M.D. (transmitted by agent of provider Keysha Romero) Address [address] [facility], [place] [address] Care Team Providers Name Role Phone Miguelina Leigh PA - Medical Care Team Information [employer] [place] [phone] Problems Active Problems Provider Date Aortic valve disorder Jonh Mott M.D., [facility], Onset: 07/26/2013 FASNC Displacement of lumbar Malcolm Milner M.D. Onset: 03/07/2014 intervertebral disc without myelopathy Postoperative Wound Closure Pramod Mendoza M.D., [facility], [facility] Onset: 04/25/2014 Encounter Complete atrioventricular block Tracie [...] Former Cigarette Smoker Unknown Smoking Status Reviewed: 03/25/19 Former Cigarette Smoker ETOH Use consumes 6-7 beers per week Tobacco Use Start: Unknown End: Patient is a former quit in 1989, 1+PPD Unknown smoker for 20yrs Recreational Drug Use Denies Drug Use Exercise Type/Frequency Exercises sporadically Allergies, Adverse Reactions, Alerts Description No Known Drug Allergies Medications Active Medications SIG Qnty Indications Ordering Provider Date Crestor one tab on m-w- 36tabs Tracie Ramos, 01/23/2018 10mg Tablets M.D. Metoprolol Succinate 1 by mouth every 90tabs Tracie Ramos, 08/29/2015 ER day M.DFaisal 50mg Tablets ER 24HR Aspirin 81 po qd Jonh Mott, 05/04/2013 81mg Tablets M.DFaisal, [facility], [facility] [place] Lisinopril 1/2 by mouth Unknown 2.5mg every day Tablets Zetia 1 tablet po daily Kelley Richardson, 10mg Tablets ( started taking 9 months ago) Celebrex take one Unknown 200mg Capsules capsule/tablet po qd Cardizem CD 1 by mouth every Unknown 120mg Caps day ER 24HR Famotidine Take 1 Tablet By Unknown 40mg Tablets Mouth Once Daily AT Bedtime For 30 Days Gabapentin 1 tablet by mouth Miguelina Leigh PA 100mg three times per Capsules day Medications Administered in Office Medication SIG Qnty Indications Ordering Provider Date Depomedrol 40MG Monique Jain M.D. 11/16/2018 Injection Immunizations Description No Information Available Vital Signs Date Vital Result Comment 03/25/2019 12:06pm Height 59.5 inches 4'11.50" Weight 123.00 lb Heart Rate 66 /min BP Systolic 100 mmHg BP Diastolic 64 mmHg BMI (Body Mass Index) 24.4 kg/m2 03/04/2019 10:52am Height 59.5 inches 4'11.50" Weight 124.00 lb Heart Rate 60 /min BP Systolic 128 mmHg Rue reg cuff BP Diastolic 74 mmHg Rue reg cuff Respiratory Rate 14 /min BMI (Body Mass Index) 24.6 kg/m2 Results Test Acquired Date Facility Test Result H/L Range Note Platelet Count 03/17/2019 [facility] Platelet 205 10^3/uL Normal 150-450 [place] [address] [phone] Mean Platelet Volume 7.4 fL Normal 7.4-10.4 Inr/Protime 03/17/2019 [facility] Inr 1.00 Normal 0.82-1.[address] [place] [address] [phone] Laboratory test 03/17/2019 [facility] Partial 33.6 Normal 26.0 -38.0 [place] [address] Time PTT [phone] Protein 12/22/2018 [facility] Total 7.9 g/dL 6.3 - 7.9 Electrophoresis Protein([place] [address] p) [phone] Albumin 3.9 g/dL 3.4-4.7 Alpha-1 Globulin 0.3 g/dL 0.1-0.3 Alpha-2 Globulin 1.2 g/dL Abnormal 0.6-1.0 Beta Globulin 1.2 g/dL 0.7-1.2 Gamma Globulin 1.3 g/dL 0.6-1.6 Albumin/Globulin Ratio 0.97 Impression See Comment 2 Laboratory 12/22/2018 [facility] TSH (Thyroid 0.71 Normal 0.34 -5.[address] Stim Horm) mcIU/[place] [address] [phone] Free T4 (Free Thyroxine) 1.07 ng/dL Normal 0.61-1.12 4 Erythrocyte Sed Rate 13 mm/Hr Normal 0-29 5 C Reactive Protein 2.03 mg/L Normal <8.01 6 Anti Nuclear Antibody 1.9 U Abnormal 7 Vitamin B12 12/22/2018 [facility] Vitamin B12 530 pg/mL Normal 180-914 8 And Folate Serum [place], [place] [address] [phone] Folic Acid (Folate) 19.93 ng/mL >3.99 9 Laboratory test 12/22/2018 [facility] Creatine 63 U/L Normal 10-223 [address] Kinase(CK) [place] [address] [phone] Aldolase 4.9 U/L <7.7 11 Myoglobin 34.1 ng/mL Normal 14.3-65.8 12 Lyme Screen W/ Reflex To WB Negative Negative 13 Comp Metabolic 12/22/2018 [facility] Sodium 139 mmol/L Normal 135-[address] [place] [address] [phone] Potassium 4.5 mmol/L Normal 3.5-5.0 Chloride 101 [...] Egfr 88.4 >60 14 CBC Auto 12/22/2018 [facility] White Blood 5.5 10^3/uL Normal 3.5-10.[address] [place] [address] [phone] Red Blood Count 4.58 10^6/uL Normal 3.70-4.87 [...] Blood Cells % 0.1 CBC Auto 11/10/2018 [facility] White Blood 4.8 10^3/uL Normal 3.5-10.[address] [place] [address] [phone] Red Blood Count 4.27 10^6/uL Normal 3.70-4.87 [...] Blood Cells % 0.1 Comp Metabolic 11/10/2018 [facility] Sodium 137 mmol/L Normal 135-[address] [place] [address] [phone] Potassium 4.0 mmol/L Normal 3.5-5.0 Chloride 105 [...] Egfr 103.8 >60 15 Laboratory test 11/10/2018 [facility] Hemoglobin A1c 5.6 % Normal 4.0-5.[address] (Glyco HGB) [place] [address] [phone] 1 Standard intensity warfarin therapeutic range: 2.0-3.0 High intensity warfarin therapeutic range: 2.5-3.5 2 RESULT: No apparent monoclonal protein on serum electrophoresis. Test Performed by: [facility] [address] [place] [address] Tankage Supervisor: Elvis Craig M.D. Ph.D.; CLIA# [id number] 3 Copy Result to: MIGUELINA LEIGH ([id number]) 4 Copy Result to: MIGUELINA LEIGH ([id number]) 5 Copy Result to: MIGUELINA LEIGH ([id number]) 6 Copy Result to: MIGUELINA LEIGH ([id number]) 7 Interpretation: Weak Positive (1.1-2.9) REFERENCE VALUE <=1.0 (Negative) Test Performed by: [facility] [address] [place] [address] Tankage Supervisor: Elvis Craig M.D. Ph.D.; CLIA# [id number] 8 Normal Range 180 to 914 Indeterminate Range 145 to 180 Deficient Range <145 9 Copy Result to: MIGUELINA LEIGH ([id number]) 10 Copy Result to: MIGUELINA LEIGH ([id number]) 11 Test Performed by: [facility] - [facility] [address] [place] [address] Tankage Supervisor: Elvis Craig M.D. Ph.D.; CLIA# [id number] 12 Copy Result to: MIGUELINA LEIGH ([id number]) 13 Copy Result to: MIGUELINA LEIGH ([id number]) 14 Because ethnic data is not always [...] in selective patients <6.0%. Please refer to [place] [employer] diabetic care guidelines for further information. Procedures Date Code Description Status 02/09/2019 21676 ECHO Stress Test Incl Perf Contiuous ekg Monitoring W/Phys Completed Superv 02/01/2019 91587 Pace Maker Eval W/Iterative Adjment Dual Lead Completed 02/01/2019 48631 Pace Maker Eval W/Iterative Adjment Dual Lead Completed 02/01/2019 88431 EKG Tracing & Interpretation Completed 01/14/2019 93017 Nerve Conduction 13+ Studies Completed 01/14/2019 50651 Needle Electromyography Complete, Five Or More Muscles Completed Studied 11/16/2018 89558 Inject/Drain Joint/Bursa Major W/O US Completed 11/11/2018 82718 ECHO Transthorasic Realtime 2D W Doppler & Color Flow Hosp Completed Medical Devices Description No Information Available Encounters Type Date Location Provider Dx Diagnosis Office Visit 03/04/2019 [facility] M47.12 Other spondylosis 11:00a Services Of Nilo Archuleta MD with myelopathy, cervical region M47.896 Other spondylosis, lumbar region Office Visit 01/29/2019 [facility] Ward Hanson, R20.2 Paresthesia of 12:00p Neurologic M.D. skin Services Of [facility] I63.9 Cerebral infarction, unspecified R53.1 Weakness Office Visit 12/22/2018 9:00a [facility] Andrei R20.2 Paresthesia of Services Of Nilo De N.P. skin I63.9 Cerebral infarction, unspecified R53.1 Weakness Z86.73 Prsnl hx of TIA (TIA), and cereb infrc w/o resid deficits Office Visit 12/21/2018 2:00p [facility] Orthopedicestephania Jain, M25.512 Pain in left at [facility].DFaisal shoulder M25.511 Pain in right shoulder Office Visit 11/16/2018 1:45p [facility] Jain, S46.011A Strain of at [place] M.D. musc/tend the rotator cuff of right shoulder, init M75.41 Impingement syndrome of right shoulder M19.011 Primary osteoarthritis, right shoulder M25.511 Pain in right shoulder M25.512 Pain in left shoulder M19.012 Primary osteoarthritis, left shoulder Office Visit 11/11/2018 Neurohospitalist Shawna Ordonez, G81.91 Hemiplegia, 7:00a Clinic MD unspecified affecting right dominant side I67.82 Cerebral ischemia Office Visit 11/11/2018 10:30a [facility] Angie Paul, R53.1 Weakness Assoc,pc Hospitalists PA-C I25.10 Athscl heart disease of [place] coronary artery w/o ang pctrs I10 Essential (primary) hypertension E78.5 Hyperlipidemia, unspecified C50.919 Malignant neoplasm of unsp site of unspecified female breast Z95.0 Presence of cardiac pacemaker Z95.4 Presence of other heart-valve replacement I48.0 Paroxysmal atrial fibrillation Office Visit 11/10/2018 [facility] Dulce Maria Curry, G45.9 Transient 10:29a Assoc,jimmy Dela Cruz cerebral ischemic Hospitalists attack, unspecified Z95.0 Presence of cardiac pacemaker E78.5 Hyperlipidemia, unspecified Z95.2 Presence of prosthetic heart valve Z86.79 Personal history of other diseases of the circulatory system Assessments Date Code Description Provider 03/25/2019 M47.12 Other spondylosis with myelopathy, Ward [...] De, N.P. 12/22/2018 I63.9 Cerebral infarction, unspecified Andreikarlee De, N.P. 12/22/2018 R53.1 Weakness Andreikarlee De, N.P. 12/22/2018 Z86.73 Personal history of [...] MAREK StrongC 11/11/2018 I67.82 Cerebral ischemia Shawna Orodnez MD 11/11/2018 G45.9 Transient cerebral ischemic attack, Tracie Ramos M.D. unspecified 11/11/2018 I25.10 Atherosclerotic heart disease of [place] MAREK StrongC coronary artery without angina pectoris 11/11/2018 I10 Essential (primary) hypertension ANA Strong-C 11/11/2018 E78.5 Hyperlipidemia, unspecified Angie Humberto PA-C 11/11/2018 C50.919 Malignant neoplasm of unspecified site MAREK StrongC of unspecified female breast 11/11/2018 Z95.0 Presence of cardiac pacemaker Angie Paul PA-C 11/11/2018 Z95.4 Presence of other heart-valve ANA Strong-C replacement 11/11/2018 I48.0 Paroxysmal atrial fibrillation Angie [...] the circulatory system Plan of Treatment Future Appointment(s):04/28/2019 1:00 pm - Art Archuleta MD at [facility]03/25/2019 - Ward Hanson M.D.M47.12 Other spondylosis with myelopathy, cervical regionFollow up:TBDM47.896 Other spondylosis, lumbar region Functional Status Description No Information Available Mental Status Description No Information Available Referrals Refer to Reason for Referral Status Appt Date Art Archuleta MD neck pain Sent [address] [place] [phone]
--- OUTSIDE RECORDS SUMMARY | 2019-04-27 06:03 | XMS REPORT | Continuity of Care Document ---
:1940 External Reference #:[id number] Author Name Art Archuleta MD (transmitted by agent of provider Deirdre Francisco ) Address [address] [place] [address] Care Team Providers Name Role Phone Miguelina Leigh PA - Medical Care Team Information Agate Setter [phone] Problems Active Problems Provider Date Aortic valve disorder Jonh Mott M.D., [facility], Onset: 07/26/2013 FASNC Displacement of lumbar Malcolm Milner M.D. Onset: 03/07/2014 intervertebral disc without myelopathy Postoperative Wound Closure Pramod Mendoza M.D., [facility], [facility] Onset: 04/25/2014 Encounter Complete atrioventricular block Tracie [...] cuff capsule Monique Jain M.D. Onset: 11/16/2018 Malaise and fatigue Ward Hanson M.D. Onset: 01/29/2019 Cerebral artery occlusion Ward Hanson M.D. Onset: 01/29/2019 Skin sensation disturbance Ward Hanson M.D. Onset: 01/29/2019 Social History Type Date Description Comments Sex Unknown Tobacco Use Start: Unknown End: Former Cigarette Smoker Unknown Smoking Status Reviewed: 03/04/19 Former Cigarette Smoker ETOH Use consumes 6-7 beers per week Tobacco Use Start: Unknown End: Patient is a former quit in 1989, 1+PPD Unknown smoker for 20yrs Recreational Drug Use Denies Drug Use Exercise Type/Frequency Exercises sporadically Allergies, Adverse Reactions, Alerts Description No Known Drug Allergies Medications Active Medications SIG Qnty Indications Ordering Provider Date Crestor one tab on -w- 36tabs Tracie Ramos, 01/23/2018 10mg Tablets M.D. Metoprolol Succinate 1 by mouth every 90tabs Tracie Ramos, 08/29/2015 ER day M.D. 50mg Tablets ER 24HR Aspirin 81 po qd Jonh Richmond Mott, 05/04/2013 81[facility] Lisinopril 1/2 by mouth Unknown 2.5mg every [...] Available Vital Signs Date Vital Result Comment 03/04/2019 10:52am Height 59.5 inches 4'11.50" Weight 124.00 lb Heart Rate 60 /min BP Systolic 128 mmHg Rue reg cuff BP Diastolic 74 mmHg Rue reg cuff Respiratory Rate 14 /min BMI (Body Mass Index) 24.6 kg/m2 02/01/2019 3:01pm Height 59.50 inches 4'11.50" Weight 124.25 lb with shoes Heart Rate 60 /min BP Systolic Sitting 128 mmHg LA BP Diastolic Sitting 76 mmHg LA BP Systolic Standing 120 mmHg LA BP Diastolic Standing 76 mmHg LA BMI (Body Mass Index) 24.7 kg/m2 Ejection Fraction 60-65% Echo 11/11/18 Results Test Acquired Date Facility Test Result H/L Range Note CBC Auto 12/22/2018 [facility] White Blood 5.5 10^3/uL Normal 3.5-10.[address] [place] [address] [phone] Red Blood Count 4.58 10^6/uL Normal 3.70-4.87 [...] Red Blood Cells % 0.1 Comp Metabolic 12/22/2018 [facility] Sodium 139 mmol/L Normal 135-[address] [place] [address] [phone] Potassium 4.5 mmol/L Normal 3.5-5.0 Chloride 101 [...] Egfr Non- 73.1 >60 Egfr 88.4 >60 1 Laboratory test 12/22/2018 [facility] Creatine 63 U/L Normal 10-223 [address] Kinase(CK) [place] [address] [phone] Aldolase 4.9 U/L <7.7 3 Myoglobin 34.1 ng/mL Normal 14.3-65.8 4 Lyme Screen W/ Reflex To WB Negative Negative 5 Vitamin B12 12/22/2018 [facility] Vitamin B12 530 pg/mL Normal 180-914 [address] F[address] [place] [address] [phone] Folic Acid (Folate) 19.93 ng/mL >3.99 7 Laboratory 12/22/2018 [facility] TSH (Thyroid 0.71 Normal 0.34 -5.60 8 test finding [address] Stim Horm) mcIU/[place] [address] [phone] Free T4 (Free Thyroxine) 1.07 ng/dL Normal 0.61-1.12 9 Erythrocyte Sed Rate 13 mm/Hr Normal 0-29 10 C Reactive Protein 2.03 mg/L Normal <8.01 11 Anti Nuclear Antibody 1.9 U Abnormal 12 Protein 12/22/2018 [facility] Total 7.9 g/dL 6.3 - Electrophoresis [address] Protein(Pep) 7.9 [place] [address] [phone] Albumin 3.9 g/dL 3.4-4.7 Alpha-1 Globulin 0.3 g/dL 0.1-0.3 Alpha-2 Globulin 1.2 g/dL Abnormal 0.6-1.0 Beta Globulin 1.2 g/dL 0.7-1.2 Gamma Globulin 1.3 g/dL 0.6-1.6 Albumin/Globulin Ratio 0.97 Impression See Comment 13 CBC Auto 11/10/2018 [facility] White Blood 4.8 10^3/uL Normal 3.5-10.[address] [place] [address] [phone] Red Blood Count 4.27 10^6/uL Normal 3.70-4.87 [...] Blood Cells % 0.1 Comp Metabolic 11/10/2018 [facility] Sodium 137 mmol/L Normal 135-[address] [place] [address] [phone] Potassium 4.0 mmol/L Normal 3.5-5.0 Chloride 105 [...] Egfr Non- 85.8 >60 Egfr 103.8 >60 14 Laboratory test 11/10/2018 [facility] Hemoglobin A1c 5.6 % Normal 4.0-5.[address] (Glyco HGB) [place] [address] [phone] 1 Because ethnic data is not always readily [...] 15-29 5 Kidney failure <15 (or dialysis) 2 Copy Result to: MIGUELINA LEIGH ([id number]) 3 Test Performed by: [place] [address] Teller Head: Elvis Craig M.D. Ph.D.; CLIA# [id number] 4 Copy Result to: MIGUELINA LEIGH ([id number]) 5 Copy Result to: MIGUELINA LEIGH ([id number]) 6 Normal Range 180 to 914 Indeterminate Range 145 to 180 Deficient Range <145 7 Copy Result to: MIGUELINA LEIGH ([id number]) 8 Copy Result to: MIGUELINA LEIGH ([id number]) 9 Copy Result to: MIGUELINA LEIGH ([id number]) 10 Copy Result to: MIGUELINA LEIGH ([id number]) 11 Copy Result to: MIGUELINA LEIGH ([id number]) 12 Interpretation: Weak Positive (1.1-2.9) REFERENCE VALUE <=1.0 (Negative) Test Performed by: [facility] [place] [address] Teller Head: Elvis Craig M.D. Ph.D.; CLIA# [id number] 13 RESULT: No apparent monoclonal protein on serum electrophoresis. Test Performed by: [facility] [place] [address] Teller Head: Elvis Craig M.D. Ph.D.; CLIA# [id number] 14 Because ethnic data is not always [...] 5 Kidney failure <15 (or dialysis) 15 Therapeutic target for the treatment of diabetes mellitus patients is <7% HBA1C, and in selective patients <6.0%. Please refer to [place] [employer] diabetic care guidelines for further information. Procedures Date Code Description Status 02/09/2019 12173 ECHO Stress Test Incl Perf Contiuous ekg Monitoring W/Phys Completed Superv 02/01/2019 88042 Pace Maker Eval W/Iterative Adjment Dual Lead Completed 02/01/2019 78236 Pace Maker Eval W/Iterative Adjment Dual Lead Completed 02/01/2019 38730 EKG Tracing & Interpretation Completed 01/14/2019 83262 Nerve Conduction 13+ Studies Completed 01/14/2019 12986 Needle Electromyography Complete, Five Or More Muscles Completed Studied 11/16/2018 47523 Inject/Drain Joint/Bursa Major W/O US Completed 11/11/2018 48660 ECHO Transthorasic Realtime 2D W Doppler & Color Flow Hosp Completed Medical Devices Description No Information Available Encounters Type Date Location Provider Dx Diagnosis Office Visit 01/29/2019 [facility] Ward Hanson, R20.2 Paresthesia of 12:00p [facility] Jose De Jesus skin I63.9 Cerebral infarction, unspecified R53.1 Weakness Office Visit 12/22/2018 9:00a [facility] Andrei R20.2 Paresthesia of [facility] Skyla De skin I63.9 Cerebral infarction, unspecified R53.1 Weakness Z86.73 Prsnl hx of TIA (TIA), and cereb infrc w/o resid deficits Office Visit 12/21/2018 2:00p [facility] Monique Jain, M25.512 Pain in left at [facility] shoulder M25.511 Pain in right shoulder Office Visit 11/16/2018 1:45p [facility] Monique Jain, S46.011A Strain of at [facility] musc/tend the rotator cuff of right shoulder, init M75.41 Impingement syndrome of right shoulder M19.011 Primary osteoarthritis, right shoulder M25.511 Pain in right shoulder M25.512 Pain in left shoulder M19.012 Primary osteoarthritis, left shoulder Office Visit 11/11/2018 [facility] Shawna Ordonez, G81.91 Hemiplegia, 7:00a Clinic unspecified affecting right dominant side I67.82 Cerebral ischemia Office Visit 11/11/2018 10:30a [facility] Angie Paul, R53.1 Weakness Assoc,[facility] Hospitalists PA-C I25.10 Athscl heart disease of [place] coronary artery w/o ang pctrs I10 Essential (primary) hypertension E78.5 Hyperlipidemia, unspecified C50.919 Malignant neoplasm of unsp site of unspecified female breast Z95.0 Presence of cardiac pacemaker Z95.4 Presence of other heart-valve replacement I48.0 Paroxysmal atrial fibrillation Office Visit 11/10/2018 [facility] Dulce Maria Curry, G45.9 Transient 10:29a jimmy Carrillo M.D. cerebral ischemic Hospitalists attack, unspecified Z95.0 Presence of cardiac pacemaker E78.5 Hyperlipidemia, unspecified Z95.2 Presence of prosthetic heart valve Z86.79 Personal history of other diseases of the circulatory system Assessments Date Code Description Provider 03/04/2019 M47.12 Other spondylosis with myelopathy, Art [...] Ordonez MD dominant side 11/11/2018 R53.1 Weakness Angie Paul PA-C 11/11/2018 I67.82 Cerebral ischemia Shawna Ordonez MD 11/11/2018 G45.9 Transient cerebral ischemic attack, Tracie Ramos M.D. unspecified 11/11/2018 I25.10 Atherosclerotic heart disease of [place] Angie Paul PA-C coronary artery without angina pectoris 11/11/2018 I10 Essential (primary) hypertension Angie Paul PA-C 11/11/2018 E78.5 Hyperlipidemia, unspecified Angie Paul PA-C 11/11/2018 C50.919 Malignant neoplasm of unspecified [...] Art Archuleta MD at [facility]03/25/2019 12:00 pm - Ward Hanson M.D. at [facility]03/04/2019 - Art Archuleta, MDM47.12 Other spondylosis with myelopathy, cervical regionFollow up:RV in 2-3 months after myelogram. Patient should have clearance by PCP for myelogram.M47.896 Other spondylosis, lumbar region Functional Status Description No Information Available Mental Status Description No Information Available Referrals Refer to Dr Reason for Referral Status Appt Date Art Archuleta MD neck pain Sent [address] [place] [phone]
[2019-04-27] MEDS ORDERED: Bacitracin INJECTION* 50,000 UNITS ONE (06:40)
[2019-04-27] MEDS ORDERED: ceFAZolin 2 GM in NS PREMIX(*) 2 GM/100 ML BAG IVPB ONE (06:40)
[2019-04-27] MEDS ORDERED: Lidocaine 1% w EPI 1:200,000* SDV 30 ML VIAL ONE (06:40)
[2019-04-27] MEDS ORDERED: Buffered Lidocaine 1% SYRIN* 1 ML/SYRINGE INTRADERM ONE (06:40)
[2019-04-27] MEDS ORDERED: Propofol* 500 MG/50 ML BTL ONE (07:29)
[2019-04-27] MEDS ORDERED: KETAMINE HCL* 50 MG/ML 10 ML VIAL ONE (07:30)
[2019-04-27] MEDS ORDERED: Phenylephrine 10 MG/ML VIAL* 1 ML VIAL ONE (07:32)
[2019-04-27] MEDS ORDERED: Remifentanil* 2 MG VIAL ONE ×2 (07:32→07:40)
[2019-04-27] MEDS ORDERED: Midazolam* 1 MG/ML 2 ML VIAL (2 MG) ONE (07:34)
[2019-04-27] MEDS ORDERED: Propofol* 10 MG/ML 20 ML BTL ONE (07:40)
[2019-04-27] MEDS ORDERED: Lidocaine 2% PF * 5 ML VIAL ONE (07:40)
[2019-04-27] MEDS ORDERED: Dexamethasone IV* 4 MG/ML 1 ML (4 MG) ONE (08:47)
[2019-04-27] MEDS ORDERED: Propofol* 1,000 MG/100 ML BTL ONE (09:06)
[2019-04-27] MEDS ORDERED: Acetaminophen IV 1GM/100ML * 100 ML ONE (09:17)
[2019-04-27] MEDS ORDERED: Ondansetron INJ* 2 MG/ML VIAL ONE (09:18)
[2019-04-27] MEDS ORDERED: Ketorolac INJ* 30 MG/ML 1 ML VIAL ONE (09:18)
[2019-04-27] MEDS ORDERED: Metoclopramide IV* 5 MG/ML 2 ML VIAL IV PRN (09:19)
[2019-04-27] MEDS ORDERED: Naloxone* 0.4 MG/ML 1 ML VIAL IV PRN (09:19)
[2019-04-27] MEDS ORDERED: oxyCODONE TAB* 5 MG TAB ONE (10:58)
[2019-04-27] MEDS ORDERED: HYDROmorphone INJ1* 1 MG/ML SYRINGE ONE (10:58)
[2019-04-27] MEDS ORDERED: HYDROcodone/ACETAMIN 5-325 MG* 1 TAB PO PRN (10:59)
[2019-04-27] MEDS: HYDROmorphone INJ1* 1 MG/ML SYRINGE IV PRN ×5 (10:59→11:36)
[2019-04-27] MEDS ORDERED: Acetaminophen TAB* 325 MG PO PRN (10:59)
[2019-04-27] MEDS ORDERED: Ondansetron INJ* 2 MG/ML VIAL IV PRN (10:59)
[2019-04-27] MEDS: oxyCODONE TAB* 5 MG TAB PO PRN ×2 (10:59→11:01)
--- NOTE | 2019-04-27 13:42 | CONS ---
CC: ANA Madsen; Dr. Ward Hanson; Dr. Tracie Ramos; Dr. Art Archuleta * CONSULTATION REPORT: DATE OF CONSULT: 04/27/19 PRIMARY CARE PROVIDER: ANA Madsen OUTPATIENT NEUROLOGIST: Dr. Ward Hanson. OUTPATIENT LEAD CASE MANAGER: Dr. Tracie Ramos. REQUESTING PROVIDER: Dr. Art Archuleta. MY ATTENDING WHILE IN THE HOSPITAL: Dr. Sb Palomares. (DICTATED BY ANA HUTCHISON) REASON FOR CONSULT: Co-management of comorbid medical conditions. HISTORY OF PRESENT ILLNESS: Ms. Barajas is a 78-year-old female with past medical history significant for cervical myelopathy as well as lumbar spinal disk disease; sick sinus syndrome, status post pacemaker; aortic valve replacement x2 , who presents today for an elective cervical anterior decompression and fusion with PEEK, plate and screws. The patient is feeling well postoperatively. The patient does not have any pain at this point, does not have a significant increase currently in the movement or sensation in her right hand. The patient denies chest pain, shortness of breath, fevers, chills, nausea, vomiting, dizziness, or other symptoms. Before her surgery, the patient was feeling relatively well. The patient had no sick contacts. No recent changes to her medications. The patient most recently took her aspirin 6 days ago and her lisinopril 2-1/2 days ago. She took all of her medications as prescribed. The patient denies nausea, vomiting, dizziness, changes in her vision, or dysuria after the surgery. No complications were reported during the surgery. The patient's vital signs were stable and she is currently transferred from the PACU to surgical stay unit. PAST MEDICAL HISTORY: Hypertension; hyperlipidemia; breast cancer; coronary artery disease; sick sinus syndrome, status post pacemaker; aortic valve replacement x2. PAST SURGICAL HISTORY: Mastectomy, abdominoplasty, hysterectomy, aortic valve replacement x2, aortic root patch. MEDICATIONS: 1. Zetia 10 mg p.o. daily. 2. Crestor 10 mg p.o. Friday, Friday, Friday. 3. Metoprolol succinate 50 mg p.o. daily. 4. Lisinopril 2.5 mg p.o. at bedtime. 5. Aspirin 81 mg p.o. daily. 6. Diltiazem 120 mg p.o. at bedtime. 7. Famotidine 40 mg p.o. at bedtime. 8. Ditropan 10 mg p.o. b.i.d. 9. Celebrex 200 mg p.o. daily. ALLERGIES: No known drug allergies. FAMILY HISTORY: The patient's mother of colon cancer. The patient's father of old age in his 80s. SOCIAL HISTORY: The patient quit smoking in 1989, 20-pack year history of smoking. The patient drinks occasional alcohol. Denies illicit drugs. 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 Her surrogate decision makers will be her sisters, Brissa Domínguez or Elizabeth Ruggiero. PHYSICAL EXAM: General: The patient is a 78-year-old female, who appears stated age and sitting in the bed, in a Gilliam J collar, in no acute distress. Vital Signs: At the time of evaluation, temperature 97.5, pulse rate 59, respiratory rate 18, oxygen saturation 100% on 3 L, blood pressure most recently 170/90. HEENT: Head normocephalic, atraumatic. Sclerae anicteric. No conjunctival injection. Nasal mucosa moist. Oral mucosa moist. No pharyngeal erythema, discharge, or exudate. Neck: Supple, nontender. No lymphadenopathy. No carotid bruits auscultated. No JVD. Cardiac: Regular rate and rhythm. No clicks, murmurs, gallops, or rubs. Pulses are 2+ in the bilateral dorsalis pedis, posterior tibialis, and radial areas. Respiratory: Clear to auscultation bilaterally. No wheezes, rales, or rhonchi. Good air exchange bilaterally. Abdomen: Soft, nontender, nondistended. Bowel sounds present and normoactive in all 4 quadrants. No hepatosplenomegaly. No abdominal bruits auscultated. No hepatojugular reflux. Genitourinary: No suprapubic or CVA tenderness. Skin: Clean, dry, and intact. No rash. Neuro: Cranial nerves II through XII intact. No focal deficits. Alert and oriented x3. Decreased strength in the right upper extremity and bilateral lower extremities. Psychiatric: Pleasant and cooperative. DIAGNOSTIC STUDIES/LAB DATA: Preoperative laboratory data: White blood cell count 6.2, hemoglobin 14.0, platelet count 207. INR 1.0, APTT 32.8. Sodium 139 , potassium 4.5, chloride 104, carbon dioxide 27, anion gap 8, BUN 19, creatinine 0.7, glucose 97, calcium 9.6. Urine unremarkable. Negative urine culture. Preoperative chest x-ray read as no active cardiopulmonary disease. Electrocardiogram is nonischemic showing paced rhythm. ASSESSMENT AND PLAN: Ms. Barajas is a 78-year-old female with past medical history significant for coronary artery disease, sick sinus syndrome, cervical myelopathy, and breast cancer, who is currently status post cervical fusion and seems to be doing well postoperatively. 1. Postoperative state. Management per Neurosurgery. We will check in to see when the surgeon will be comfortable resuming the patient's aspirin. This will be on hold at this point as well as the patient's lisinopril. The patient's diltiazem and metoprolol will be continued at this time. The patient will have physical and occupational therapy. The patient will be maintained in a Gilliam J collar at this time. 2. Hypertension. Management as above. Continue the patient's metoprolol and Cardizem. Hold the patient's lisinopril. 3. Hyperlipidemia. Continue the patient's Crestor and Zetia. 4. History of atrioventricular block. The patient has a pacemaker in place. 5. Aortic valve replacement. She does not have a murmur on exam and she has no signs of heart failure associated with this. 6. History of breast cancer. The patient is status post mastectomy. 7. Coronary artery disease. The patient has no chest pain or signs of acute coronary syndrome. Continue aspirin when able as well as lipid control with Crestor and Zetia. 8. DVT prophylaxis: The patient will be ambulated and DVT prophylaxis per Dr. Archuleta. 9. FEN: The patient will have a carbohydrate diet and fluids until she is able to maintain adequate oral intake. 10. Disposition: The patient is admitted to neurosurgery service. TIME SPENT: Approximately 60 minutes was spent on this consultation, 30 of which was spent [id number] with the patient obtaining history and physical and discussing treatment plan. This plan has been discussed with my attending, Dr. Sb Palomares, and he is in agreement. ANA HUTCHISON [id number]/[facility] #: [id number] ELVIN
[2019-04-27] MEDS: HYDROcodone/ACETAMIN 5-325 MG* 1 TAB PO PRN ×2 (14:05→18:13)
--- NOTE | 2019-04-27 17:07 | PN ---
Progress Note - Progress Note Date of Service: 04/27/19 SOAP: Post op note: Subjective: []On regular floor. Tolerated procedure well. On MJ collar. RUE strength improved Objective: []VSS Wound s,c,d AAOx3 ALEXI, CN II-XII grossly intact Motor 5/5 Lt side, 4-5 /5 Right side as preop Sensory grossly intact to light touch Assessment: []78 yof POD#0 C3-4 ACDF, for myelopathy Plan: []]Monitor VS, Neurochecks Monitor Drain output Encourage ambulation MJ collar C spine XR in am DC planning. Appreciate IM care. Adalberto Archuleta MD
--- NOTE | 2019-04-27 20:52 | OP ---
DATE OF OPERATION: 04/27/19 - ROOM #348 DATE OF : 44 SURGEON: Art Archuleta MD. TERMINAL BLOCK ASSEMBLER: NUHA Sharp. The case was done with the assistance of NUHA because of the complexity of the case. ANESTHESIA: General. PRE-OP DIAGNOSES: 1. Degenerative disk disease, C3-4. 2. Herniated nucleus pulposus. 3. Myelopathy. POST-OP DIAGNOSES: 1. Degenerative disk disease, C3-4. 2. Herniated nucleus pulposus. 3. Myelopathy. OPERATIVE PROCEDURE: The patient underwent anterior cervical diskectomy and fusion at C3-4 with PEEK interbody cage, local bone graft, DBX, plate and screws with intraoperative monitoring and operative microscope. ESTIMATED BLOOD LOSS: 10 cc. COMPLICATIONS: None. INDICATIONS: The patient is a very pleasant 78-year-old female who presented with neck pain and right upper extremity pain and findings consistent with myelopathy. CT myelogram revealed right central disk herniation at C3-4 and she was offered the option of surgical intervention. After explaining the expectation, limitations, and possible complications of the procedure to the patient and her family with complications including, but no limited to, bleeding , infection, risk of injury to adjacent structures, coma, paralysis, , need for additional procedures, anesthesia risk, stroke, blindness, cancer, instability, hardware failure, adjacent level disease, pseudoarthrosis, recurrent laryngeal nerve injury, spinal fluid leak, injury to the trachea or esophagus, need for tracheostomy or gastrostomy, injury to recurrent laryngeal nerve, Jack syndrome, need for additional procedure, postoperative hematoma, and deep venous thrombosis, the patient was agreeable to proceed with surgery and informed consent was obtained. The patient understood that her condition may not improve and in fact may get worse after surgery and that she may need to have additional procedures in the future. So also understood that the operative plan may be modified according to intraoperative findings and conditions and that the case may be abandoned or done in more than 1 stage. The patient understood that she may require prolonged hospitalization, prolonged rehabilitation, prolonged ICU stay. DESCRIPTION OF PROCEDURE: The patient was brought to the operating room, she was placed on general anesthesia by the anesthesia team. She was carefully positioned supine on the Amadou table and all bony prominences were meticulously padded. Her skin was prepped and draped in standard fashion. After appropriate surgical pause and patient identification, a small right transverse incision was marked over the skin over the level of C3-4. Intraoperative fluoroscopy was used to identify the exact surgical level. The skin was infiltrated with local anesthetic and #10 surgical blade was used to incise the skin. The incision was carried down through subcutaneous tissue and the skin was undermined with tenotomy scissors. The platysma was gently identified and elevated and divided with sharp dissection and the platysma was then gently undermined. Self-retaining retractors were introduced right into the field and the plane between the medial border of the sternocleidomastoid and the medial structures was developed with sharp and blunt dissection. The prevertebral fascia was identified and was gently divided with Kittner sponges. Intraoperative fluoroscopic imaging confirmed appropriate surgical level and a second surgical pause was performed. The Fairfield pins were placed in the vertebral body of C3 and 1 in the vertebral body of C4, and self- retaining retractors were introduced into field. Under gentle distraction, diskectomy and preparation of disk space was performed after incising the annulus fibrosis with a 15 surgical blade. Diskectomy was carried out with pituitary rongeurs, curettes, high-speed drill, and Kerrison punches. The posterior longitudinal ligament was then identified and there was a defect in the center and towards the right of the midline as expected from preoperative imaging with herniated nucleus pulposus, herniated through that. The herniated disk fragments were gently removed with pituitary rongeurs with the use of nerve hook and #1 was used to divide the posterior longitudinal ligament. The attachments of the dura were left in place, and after dissecting off the posterior longitudinal ligament fragment at the level of the disk space, the thecal sac and the nerve roots were found to be free of any pressure phenomenon. After confirmation of meticulous hemostasis and copious irrigation and meticulous inspection, the disk space was sized. Of note, the Apfelbaum maneuver was performed after the incision of the Shadow-line retractors. Prior to that, a small decrease in the recurrent laryngeal nerve signal was identified, was significantly improved with the Apfelbaum maneuver and by reducing the tension on the Shadow-line retractors. A 7- mm height PEEK interbody cage was inserted after being filled with locally harvested bone graft at the time of the diskectomy as well as DBX putty. A Zevo 17 mm Medtronic plate was then placed between the C3 and C4 vertebral body after removing the Fairfield pins. Intraoperative fluoroscopic imaging found excellent placement of all hardware, and after copious irrigation and confirmation of meticulous hemostasis and meticulous inspection, the self- retaining retractors were removed as well as meticulous hemostasis was confirmed. The would was closed by layers after copious irrigation over a Cristobal drain, which was tunneled through a separate stab wound incision. 2-0 interrupted Vicryl suture was used to approximate the platysma and inverted interrupted 2-0 Vicryl suture was used to approximate the subcutaneous tissue. The skin was then approximated with Dermabond and covered with Steri sponges. At the end of the procedure, all counts were reported to be correct. The patient remained hemodynamically stable throughout the case. Intraoperative electrophysiological monitoring remained stable throughout the case and showed mild improvement over the baseline signals towards the end of the procedure. The patient was then extubated, was transferred to Recovery in excellent condition. [id number]/[facility] #: [id number] ELVIN
[2019-04-27] MEDS ORDERED: Diltiazem CD CAP* 120 MG PO SCH (21:00)
[2019-04-27] MEDS ORDERED: Famotidine TAB* 20 MG PO SCH (21:00)
[2019-04-27] MEDS ORDERED: Ezetimibe TAB* 10 MG PO SCH (21:00)
[2019-04-27] MEDS: Oxybutynin TAB* 5 MG PO SCH (21:24)
[2019-04-27] MEDS: Magnesium Hydroxide LIQ* 30 ML UDC PO PRN (21:25)
[2019-04-28] MEDS ORDERED: Atorvastatin* 20 MG TAB PO SCH (09:00)
[2019-04-28] MEDS ORDERED: celeCOXIB CAP* 200 MG PO SCH (09:00)
[2019-04-28] MEDS ORDERED: Metoprolol Succinate XL TAB* 50 MG PO SCH (09:00)
[2019-04-28] MEDS: Oxybutynin TAB* 5 MG PO SCH (09:05)
[2019-04-28] MEDS: HYDROcodone/ACETAMIN 5-325 MG* 1 TAB PO PRN (14:40)
[2019-04-28] MEDS: Magnesium Hydroxide LIQ* 30 ML UDC PO PRN (14:41)
[2019-04-28 15:35] VITALS: BP 122/61
--- NOTE | 2019-04-28 23:48 | DS ---
CC: ANA Dolan; Dr. Ward Hanson; Dr. Ramos * DISCHARGE SUMMARY: DATE OF ADMISSION: 04/27/19 DATE OF DISCHARGE: 04/28/19 PROVIDER: Joann Hope NP. ATTENDING PHYSICIAN: Dr. Beard.* (DICTATED BY JOANN HOPE NP) PRIMARY CARE PHYSICIAN: ANA Dolan. She is also seen by Dr. Ward Hanson and Dr. Ramos. SURGEON: Dr. Archuleta. PRIMARY DIAGNOSES: Status post C3-4 anterior cervical diskectomy and fusion with PEEK interbody cage, local bone graft, DBX, plate and screws. SECONDARY DIAGNOSES: 1. Hypertension. 2. Hyperlipidemia. 3. History of atrioventricular block. 4. Aortic valve replacement. 5. Breast cancer. 6. Coronary artery disease. PROCEDURES: Status post C3-4 ACDF with PEEK cage. DIAGNOSTIC STUDIES: None. PERTINENT LABORATORY DATA: None. HISTORY OF PRESENT ILLNESS/HOSPITAL COURSE: This is a 78-year-old female with past medical history significant for cervical myelopathy, sick sinus syndrome, status post pacemaker, aortic valve replacement x2, who presented to the hospital on 04/27/19, status post an elective C3-4 ACDF with PEEK cage. After failing conservative outpatient medical management, the hospitalists were asked to consult on the patient to help manage her other comorbidities. Her stay in the hospital went relatively uneventfully. She wore a [place] J collar on at all times. Her pain was well controlled with hydrocodone. She did have several higher blood pressures in the PACU with blood pressures is the 160s to 170s; however, when she came out to the floor, her blood pressures remained well control with one-teens to 120s. She initially had a JENNY drain to the right anterior neck, which was discontinued by myself this afternoon. She tolerated the removal well. The incision to the right anterior neck was occluded shut, well approximated with no redness, swelling, or drainage noted. We dressed it with a clean 4x4 and paper tape, during which I taught her sister how to do so, as her sister had come up from [place] to help care for her when she was discharged home. The patient was in good spirits. Her pain is well controlled. REVIEW OF SYSTEMS: A 12-point system review was performed, which is positive for mild sore throat and neck pain. Otherwise, negative for any headaches, vision changes, chest pain, palpitation, shortness of breath, abdominal pain, nausea, vomiting or issues moving her bowels or bladder. PHYSICAL EXAMINATION: Vital Signs: 98.7 Fahrenheit, 61 pulse, 16 respirations , 95% oxygen on room air, 122/62 blood pressure. General: This is a well- developed, older woman seen sitting up in the chair, in no acute distress, noted with Guid[place] J collar in place. HEENT: Conjunctivae pink and moist. PERRLA. EOMs intact. Oropharynx is clear. Mucous membranes moist. Neck is supple with trace edema to incision to the right side of her neck. Guid[place] J collar in place. Cardiac: S1 and S2 present. Heart rate slightly irregular with no murmurs, gallops, or rubs appreciated. Respiratory: Lung sounds clear throughout bilaterally on room air with no accessory muscle use noted. Abdomen : Soft, nontender, nondistended with positive bowel sounds x4. Musculoskeletal : 2+ positive pedal pulses and radial pulses. No clubbing or cyanosis of the digits. Equal hand grasp. Skin: Skin around the incision has no erythema, edema, or drainage. Dressing is clean, dry, and intact. Incision was well approximated. No other open areas appreciated. Neurologic: Sensation intact to light touch. No focal deficits appreciated. Psych: She is alert and oriented x4. Thought content organized. DISCHARGE PLAN: She is to be discharged home with regular diet with the recommendation that she is to stick with softer easier to swallow foods in the next week and to keep a glass of liquid near her while she is eating to help swallow food if necessary. Her activity, she is to do no bending, straining, or heavy lifting. She is to not lift anything heavier than a coffee cup. She is to wear her [place] J collar at all times in the next 3 months except for brief times during the shower. She is to return to the emergency room should she develop any sudden chest pain , shortness of breath, or weakness in one or both of her upper or lower extremities. She is to call Dr. Archuleta' office with any concerns for signs or symptoms of infection. PLAN FOR EACH CONDITION: 1. Status post ACDF of C6-C7 with PEEK interbody cage. She is to follow up with Dr. Archuleat in the next week. Pain controlled with hydrocodone. I checked the prescription monitoring program, reference number [id number]. She had filled no other controlled substances. Her wound management for this is to change the dressing daily for the next 2 days with a 4x4 gauze and paper tape. If at the end of the second day she is not finding any drainage, she may leave it open to air. She is not to take any showers until postop day 3, at which point she may wash gently with mild soap and water, and pat dry. 2. Hypertension. She is to continue her metoprolol, Cardizem, and lisinopril. 3. Hyperlipidemia. Continue Crestor and Zetia. 4. History of AV block. She has a pacemaker in place. 5. Aortic valve replacement. There is no murmur upon exam. No signs of heart failure. 6. History of breast cancer, status post mastectomy. 7. Coronary artery disease. She is to continue her aspirin, Crestor, and Zetia. MEDICATIONS: New medications upon discharge: Hydrocodone 5/325 mg 2 tabs p.o. q.4 hours p.r.n. with max daily dose of 10. Medications to continue upon discharge: 1. Crestor 10 mg p.o. q. Friday, Friday, Friday. 2. Oxybutynin 10 mg p.o. b.i.d. 3. Metoprolol 50 mg p.o. q.a.m. 4. Metoprolol succinate 50 mg p.o. q.a.m. 5. Lisinopril 2.5 mg p.o. at bedtime. 6. Famotidine 40 mg p.o. at bedtime. 7. Zetia 10 mg p.o. at bedtime. 8. Diltiazem 120 mg p.o. at that time. 9. Aspirin 81 mg p.o. q.a.m. CONDITION UPON DISCHARGE: Stable. DISPOSITION: To home. TIME SPENT: Time spent on the patient is about 50 minutes with 30 of that spent [id number]. JOANN HOPE, CELINA [id number]/[facility] #: [id number] ELVIN
== END 2019-04-28 16:30 | disposition home or self-care (01) | DRG 472 ==
LOC: AA 05:59 → SSU 12:02
PROVIDERS: ADMIT Neurological Surgery; ATTEND Neurological Surgery
PROC: 0RT30ZZ Resection of Cervical Vertebral Disc, Open Approach (ICD-10-PCS; 2019-04-27)
PROC: 0RG10A0 Fusion of Cervical Vertebral Joint with Interbody Fusion Device, Anterior Approach, Anterior Column, Open Approach (ICD-10-PCS; principal; 2019-04-27 07:30)
DX: M50.01 Cervical disc disorder with myelopathy, high cervical region (principal); M47.12 Other spondylosis with myelopathy, cervical region; I49.5 Sick sinus syndrome; M47.896 Other spondylosis, lumbar region; I10 Essential (primary) hypertension; R20.2 Paresthesia of skin; E78.5 Hyperlipidemia, unspecified; I44.30 Unspecified atrioventricular block; I25.10 Atherosclerotic heart disease of native coronary artery without angina pectoris; Z95.2 Presence of prosthetic heart valve; Z95.0 Presence of cardiac pacemaker; Z85.3 Personal history of malignant neoplasm of breast; Z79.82 Long term (current) use of aspirin; Z79.899 Other long term (current) drug therapy; Z80.0 Family history of malignant neoplasm of digestive organs; Z87.891 Personal history of nicotine dependence; Z82.49 Family history of ischemic heart disease and other diseases of the circulatory system; Z83.3 Family history of diabetes mellitus; Z82.3 Family history of stroke; Z82.5 Family history of asthma and other chronic lower respiratory diseases
CPT/HCPCS: 76000; A9270-GY; C1713; C1776; J0690; J1100; J1170; J1885; J2001; J2250; J2405; J2704

== ENCOUNTER 2020-10-09 07:30 | Observation (INO) ==
[~2020-10-09 07:30] MED LIST changes: +Buffered Lidocaine 1% SYRIN 1 ml INTRADERM ONE; -Buffered Lidocaine 1% SYRIN* 1 ML/SYRINGE INTRADERM ONE; +Lactated Ringers 1000 ml BAG 1,000 ML IV SCH
[2020-10-09] MEDS ORDERED: Rocuronium 50 mg VIAL 10 mg/ml 5 ml VIAL (50 mg) ONE (09:06)
[2020-10-09] MEDS ORDERED: Dexamethasone IV 4 MG/ML VIAL 1 ml VIAL ONE ×2 (09:06→11:27)
[2020-10-09] MEDS ORDERED: Midazolam 2 mg/2 ml VIAL 1 mg/ml 2 ml VIAL (2 mg) ONE (09:06)
[2020-10-09] MEDS ORDERED: fentaNYL 250 mcg/5 ml 50 MCG/ML 5 ml VIAL (250 MCG) ONE (09:06)
[2020-10-09] MEDS ORDERED: Lidocaine 2% PF 5 ML VIAL ONE (09:06)
[2020-10-09] MEDS ORDERED: Propofol 10 MG/ML 20 ML BTL ONE (09:06)
[2020-10-09] MEDS ORDERED: Phenylephrine 40 mcg/mL 10mL (400mcg) SYRINGE ONE (09:07)
[2020-10-09] MEDS ORDERED: ceFAZolin 2 GM in NS PREMIX 2 GM/100 ML BAG IVPB ONE (09:07)
[2020-10-09] MEDS ORDERED: Buffered Lidocaine 1% SYRIN 1 ml INTRADERM ONE (09:07)
[2020-10-09] MEDS ORDERED: Bupivacaine 0.25% EPI 200,000 30 ML SDV ONE (10:05)
[2020-10-09] MEDS ORDERED: ceFAZolin VIAL VIAL ONE (10:05)
[2020-10-09] MEDS ORDERED: Phenylephrine IV 10 MG/ML 1 ml VIAL ONE (11:47)
[2020-10-09] MEDS ORDERED: fentaNYL 100 mcg/2 ml 50 MCG/ML VIAL IV PRN (12:32)
[2020-10-09] MEDS ORDERED: Ondansetron 4 mg VIAL 2 MG/ML 2 ml VIAL IV PRN ×2 (12:32→14:23)
[2020-10-09] MEDS ORDERED: HYDROmorphone 1 MG/1 ML SYRINGE IV PRN (12:32)
[2020-10-09] MEDS ORDERED: Acetaminophen IV 1 GM/100ML 100 ML IV PRN (12:32)
[2020-10-09] MEDS ORDERED: Naloxone 0.4 mg VIAL 0.4 mg/ml 1 ml VIAL IV PRN (12:32)
[2020-10-09] MEDS ORDERED: Ondansetron 4 mg VIAL 2 MG/ML 2 ml VIAL ONE (13:00)
[2020-10-09] MEDS ORDERED: Magnesium Hydroxide LIQ 30 ML UDC PO PRN (14:23)
[2020-10-09] MEDS: HYDROcodone/ACETAMIN 5/325 mg TAB PO PRN ×2 (15:53→20:04)
[2020-10-10] MEDS: HYDROcodone/ACETAMIN 5/325 mg TAB PO PRN ×2 (00:21→13:20)
[2020-10-10 06:40] LABS: Hematocrit 37 % (35-47); Hemoglobin 12.7 g/dL (12.0-16.0); Mean Corpuscular HGB Conc 35 g/dL (31-36); Mean Corpuscular Hemoglobin 33 pg (27-31); Mean Corpuscular Volume 94 fL (80-97); Mean Platelet Volume 7.3 fL (7.4-10.4); Platelet Count 162 10^3/uL (150-450); Red Blood Count 3.88 10^6 /uL (3.70-4.87); Red Cell Distribution Width 13 % (10-15); White Blood Count 11.3 10^3/uL (3.5-10.8)
[2020-10-10 07:02] LABS: Calcium 8.8 mg/dL (8.6-10.3); EGFR African American 98.2 (>60); EGFR Non-African American 81.1 (>60); Potassium 4.2 mmol/L (3.5-5.0)
[2020-10-10 11:18] VITALS: BP 119/62
== END 2020-10-10 13:30 | disposition home or self-care (01) ==
LOC: AA 08:40 → OBSVTOIN 08:40 → INTOOBSV 08:40 → SSU 14:43
PROVIDERS: ADMIT Neurological Surgery; ATTEND Neurological Surgery